=== PATIENT | male | born 1945 | race Caucasian/White ===

== ENCOUNTER → 2016-09-27 | Day surgery (SDC) | payer MEDICARE ==
[~2016-09-27] MED LIST: ALPR0.5T3 PO; AMLO5TAB2 PO; AMOX125C CHEW; ASPI-110 PO; ASPI-130 PO; ASPI81TA11 PO; ASPIRIN EC 81 MG TABEC PO SCH; ATROPINE SULFATE 1 MG/ML VIAL IV PUSH PRN; BUPIVACAINE HCL PF 0.5% 30 ML VIAL ONE; BUPIVACAINE/EPINEPHRINE 0.5% 50 ML VIAL ONE; CARV12.52 PO; CARV6.252 PO; CLOPIDOGREL 300 MG TAB PO ONE; DEXAMETHASONE SOD PHOS 4 MG/ML VIAL ONE; DEXTROSE 5% IV ONE; DO NOT ADM ANY ANTICOAGULANT DRUGS XX PRN; ENALAPRILAT 1.25 MG/ML VIAL IV PRN; FAMOTIDINE 20 MG/2 ML VIAL ONE; FINA5TAB77 PO; GEMF600T PO; HEPARIN SODIUM - IV 10,000 UNITS/10 ML VIAL ONE; HEPARIN SODIUM - SQ 10,000 UNITS/ML VIAL ONE; HOLD GLUCOPHAGE, GLUCOPHAGE XR, AND AVANDAMET XX PRN; INSU1INJ14 SQ; INSULIN HUMAN REGULAR 1,000 UNITS/10 ML VIAL SQ PRN; IOHEXOL 350 MG/ML 100 ML BTL (for RAD DIAG) OTHER ONE; LABETALOL HCL 100 MG/20 ML VIAL IVP PRN; LACTATED RING IV ONE; LACTATED RINGER'S 1000 ML INJ 1,000 ML IV ONE; LACTATED RINGER'S 1000 ML IV SCH; LEVEMIR SQ; LIDOCAINE HCL 1% 50 ML VIAL INFIL PRN; LISI-357 PO; LISI-519 PO; LORazepam 2 MG/ML VIAL IVP PRN; METF500T PO; METOCLOPRAMIDE HCL 10 MG/2 ML VIAL IVS PRN; METOPROLOL TARTRATE 25 MG TAB PO PRN; MIDAZOLAM HCL 2 MG/2 ML VIAL ONE; MORPHINE SULFATE 4 MG/ML INJ IV PUSH PRN; NOVOLOGP2 SQ; ONDANSETRON HCL 4 MG/2 ML VIAL IV PRN; OXYB5TAB10 PO; PARO20TA PO; PARO30TA2 PO; PHENYLEPH/NS 1000 MCG/10 ML SYR IV ONE; PLAV75TA29 PO; POTASSIUM CHLORIDE 20 MEQ CONTROLLED RELEASE TAB PO PRN; PRAV80 PO; PRAV80TA2 PO; PROPOFOL 200 MG/20 ML AMP IV ONE; PROTAMINE SULFATE 50 MG/5 ML VIAL ONE; SODIUM CHLOR 0.9% 250 ML IV PRN; SODIUM CHLORID 0.9% 500 ML IV SCH; SODIUM CHLORIDE 0.9% 1000 ML @ 75 ML/HR IV SCH; SODIUM CHLORIDE 0.9% INJ 100 ML ONE; SODIUM CHLORIDE 5 ML FLUSH BID IVF SCH; SODIUM CHLORIDE 5 ML FLUSH PRN IVF; SODIUM NITROPRUSSIDE 50 MG/250 ML D5W IV SCH; TAMS0.4C4 PO; TAMS0.4C67 PO; VITA100064 PO; XANA0.5T PO; ceFAZolin 1,000 MG/NS 100 ML IV SCH; ceFAZolin INJ 1,000 MG VIAL ONE; cloNIDine HCL 0.1 MG TAB PO PRN; ePHEDrine/NS 25 MG/5 ML SYR IV ONE; oxyCODONE/ACETAMINOPHEN 5 MG/325 MG TAB PO PRN
[2016-09-27 08:18] VITALS: BP 116/69; PULSE 75; RESP 20; TEMP 98.2; O2SAT 98
[2016-09-27 09:05] LABS: AUTOMATED NEUTROPHIL # 8.2 TH/MM3 (1.8-7.7); BASOPHIL % 0.2 % (0.0-2.0); EOSINOPHIL # 0.1 TH/MM3 (0-0.4); EOSINOPHIL % 1.1 % (0.0-4.0); HEMATOCRIT 34.4 % (39.0-51.0); HEMO FLAGS DIFF FINAL; LYMPH % 11.9 % (9.0-44.0); LYMPHOCYTE # 1.2 TH/MM3 (1.0-4.8); MEAN CELL VOLUME 92.1 FL (80.0-100.0); MEAN CORPUSCULAR HEMOGLOBIN 32.2 PG (27.0-34.0); MONO % 5.6 % (0.0-8.0); NEUT % 81.2 % (16.0-70.0); PLATELET COUNT 297 TH/MM3 (150-450); RED BLOOD COUNT 3.73 MIL/MM3 (4.50-5.90); WHITE BLOOD COUNT 10.1 TH/MM3 (4.0-11.0)
[2016-09-27 09:19] LABS: APTT (PATIENT) 28.9 SEC (24.3-30.1); INTERNATIONAL NORMALIZED RATIO 1.1 RATIO
[2016-09-27 09:25] LABS: BICARBONATE 24.5 MEQ/L (21.0-32.0); POTASSIUM 4.2 MEQ/L (3.5-5.1)
--- NOTE | 2016-09-27 15:23 | EKG ---
Date Performed: 09/27/2016 Time Performed: 08:40:57 PTAGE: 71 years EKG: Sinus rhythm LEFT VENTRICULAR HYPERTROPHY AND ST-T CHANGE INFERIOR MYOCARDIAL INFARCTION , OF INDETERMINATE ANTER IOR WALL INFARCT OF INDETERMINATE AGE CANNOT BE EXCLUDED BECAUSE OF THE ABNORMAL R-WAVE TRANSITION. S ANTONETTE THE PRIOR TRACING THERE IS NO SIGNIFICANT SERIAL CHANGE PREVIOUS TRACING : 07/14/2015 07.46 DOCTOR: Charleen Parisi Interpretating Date/Time 09/27/2016 15:21:34
[2016-09-27 18:20] VITALS: BP 151/73; PULSE 94; RESP 18; TEMP 98.2; O2SAT 97
--- NOTE | 2016-09-30 17:39 | MP ---
cc: CCList DATE OF SURGERY: 09/27/2016 PREOPERATIVE DIAGNOSIS: Limb threatening right lower extremity ischemia. POSTOPERATIVE DIAGNOSIS Limb threatening right lower extremity ischemia. OPERATIVE PROCEDURE Right external iliac percutaneous balloon angioplasty in-stent restenosis. Intraoperative aorto femoral arteriograms. SURGEON Stephan Kennedy MD. ANESTHESIA Local MAC DESCRIPTION OF PROCEDURE The patient in the supine position IV sedation was induced, the lower abdomen, both groins and thighs prepped with Betadine and draped in a sterile fashion. Following a protocol time-out, the skin and subcutaneous tissues surrounding the proposed left common femoral access site was preemptively infiltrated with 0.5% Marcaine with epinephrine. Utilizing ultrasound guidance, an 18 gauge needle was inserted into the left mid common femoral lumen and a J-wire advanced under fluoroscopic guidance into the iliac artery. A 5-Micronesian hemostatic sheath was deployed over the J-wire. An advantage guidewire Omni catheter combination was navigated into the sub renal aorta. Flush aortogram utilizing diluted contrast in conjunction with digital C-arm fluoroscopic imaging confirmed occlusion of the right external iliac stent. The iliac artery proximal to and the common femoral artery distal to the stents were widely patent. The advantage guidewire was easily navigated through the occluded stent and into the proximal right SFA. The short 6-Micronesian sheath was exchanged for a 45 cm 6-Micronesian sheath which was guided over the aortic bifurcation into the distal right common iliac artery. The patient was systemically heparinized with 5000 units. The occluded external iliac stent which measured 7 x 30 mm in dimension was initially balloon angioplastied with a 7 x 30 mm balloon inflated to 8 atmospheres. This was followed by inflation of a 7 x 40 mm Lutonix drug coated balloon inflated to 8 atmospheres, 3-minute inflation. Completion angiogram revealed wide patency of the stent with no residual stenosis. Complete angiographic evaluation of both infrainguinal areas was then completed with findings as follows: The right common femoral profunda are widely patent. The right SFA is diffusely diseased with ragged appearing calcified eccentric atherosclerotic throughout producing an area of approximately 60% stenosis at the junction. The mid and distal third SFA. However, no complete occlusion were apparent. The popliteal was also eccentrically calcified and ectatic but patent. Both the right posterior tibial arteries were occluded but the peroneal provided single vessel runoff to the right ankle which then reconstituted the dorsalis pedis across the ankle into the foot. On the left side the common femoral and profunda were widely patent. The in-situ femoral-popliteal bypass vein graft was also widely patent throughout. The popliteal anastomosis was widely patent as well. On the left side, the anterior and posterior tibial arteries were occluded throughout but the peroneal provided single vessel runoff to the left ankle. Heparin was reversed with 15 mg of protamine. The long 6-Micronesian sheath was exchanged for a short 6-Micronesian sheath which was secured with skin suture of 4-0 nylon. Sterile dressing was applied. At the completion of procedure Doppler flow was much more robust within the right foot. The patient returned to the outpatient unit in stable condition having tolerated procedure well. MD WOLFGANG Gramajo/waqas /5:50 PM /5:29 PM
== END | disposition home or self-care (01) ==
LOC: HCVO 07:29
PROVIDERS: ATTEND Surgery Vascular Surgery
DX: I73.9 Peripheral vascular disease, unspecified (principal); I10 Essential (primary) hypertension; E11.9 Type 2 diabetes mellitus without complications; E78.5 Hyperlipidemia, unspecified
CPT/HCPCS: 36247; 36415; 80048; 82948; 85025; 85610; 85730; 86850; 86900; 86901; 93005; J0690; J1100; J1644; J2250; J2370; J2720; J7030; J7120; Q9967; 75710; C1769; C1887; C2623

== ENCOUNTER 2017-02-16 15:39 | Inpatient (IN) | payer MEDICARE ==
[~2017-02-16] VITALS: Ht 170.2 cm; Wt 82.5 kg
[~2017-02-16 15:39] MED LIST changes: -ASPI-110 PO; -ASPI-130 PO; -ASPIRIN EC 81 MG TABEC PO SCH; -ATROPINE SULFATE 1 MG/ML VIAL IV PUSH PRN; -BUPIVACAINE HCL PF 0.5% 30 ML VIAL ONE; -BUPIVACAINE/EPINEPHRINE 0.5% 50 ML VIAL ONE; -CARV12.52 PO; -CLOPIDOGREL 300 MG TAB PO ONE; -DEXAMETHASONE SOD PHOS 4 MG/ML VIAL ONE; -DEXTROSE 5% IV ONE; -DO NOT ADM ANY ANTICOAGULANT DRUGS XX PRN; -ENALAPRILAT 1.25 MG/ML VIAL IV PRN; -FAMOTIDINE 20 MG/2 ML VIAL ONE; -FINA5TAB77 PO; -HEPARIN SODIUM - IV 10,000 UNITS/10 ML VIAL ONE; -HEPARIN SODIUM - SQ 10,000 UNITS/ML VIAL ONE; -HOLD GLUCOPHAGE, GLUCOPHAGE XR, AND AVANDAMET XX PRN; -INSULIN HUMAN REGULAR 1,000 UNITS/10 ML VIAL SQ PRN; -IOHEXOL 350 MG/ML 100 ML BTL (for RAD DIAG) OTHER ONE; -LABETALOL HCL 100 MG/20 ML VIAL IVP PRN; -LACTATED RING IV ONE; -LACTATED RINGER'S 1000 ML INJ 1,000 ML IV ONE; -LACTATED RINGER'S 1000 ML IV SCH; -LEVEMIR SQ; -LIDOCAINE HCL 1% 50 ML VIAL INFIL PRN; -LISI-357 PO; -LORazepam 2 MG/ML VIAL IVP PRN; -METOCLOPRAMIDE HCL 10 MG/2 ML VIAL IVS PRN; -METOPROLOL TARTRATE 25 MG TAB PO PRN; -MIDAZOLAM HCL 2 MG/2 ML VIAL ONE; -MORPHINE SULFATE 4 MG/ML INJ IV PUSH PRN; -ONDANSETRON HCL 4 MG/2 ML VIAL IV PRN; -PARO20TA PO; -PHENYLEPH/NS 1000 MCG/10 ML SYR IV ONE; -POTASSIUM CHLORIDE 20 MEQ CONTROLLED RELEASE TAB PO PRN; -PRAV80 PO; -PROPOFOL 200 MG/20 ML AMP IV ONE; -PROTAMINE SULFATE 50 MG/5 ML VIAL ONE; -SODIUM CHLOR 0.9% 250 ML IV PRN; -SODIUM CHLORID 0.9% 500 ML IV SCH; -SODIUM CHLORIDE 0.9% 1000 ML @ 75 ML/HR IV SCH; -SODIUM CHLORIDE 0.9% INJ 100 ML ONE; -SODIUM CHLORIDE 5 ML FLUSH BID IVF SCH; -SODIUM CHLORIDE 5 ML FLUSH PRN IVF; -SODIUM NITROPRUSSIDE 50 MG/250 ML D5W IV SCH; -TAMS0.4C4 PO; -TAMS0.4C67 PO; -VITA100064 PO; -XANA0.5T PO; -ceFAZolin 1,000 MG/NS 100 ML IV SCH; -ceFAZolin INJ 1,000 MG VIAL ONE; -cloNIDine HCL 0.1 MG TAB PO PRN; -ePHEDrine/NS 25 MG/5 ML SYR IV ONE; -oxyCODONE/ACETAMINOPHEN 5 MG/325 MG TAB PO PRN
[2017-02-16 15:43] VITALS: BP 117/59; PULSE 87; RESP 17; TEMP 98.5; O2SAT 95
--- NOTE | 2017-02-16 16:34 | PD ---
HPI . right great toe infection Chief Complaint: Skin Problem Time Seen by Provider: 16:28 Travel History International Travel<30 days: No Contact w/Intl Traveler<30days: No Traveled to known affect area: No History of Present Illness HPI 71-year-old male with multiple medical problems including diabetes, hypertension , hyperlipidemia, CAD, history of CABG, PAD, femoral bypass in the past, history of nephrolithiasis here with complaints of right great toe infection. Patient tells me that he has had infection of his right great toe since August of this year. He has been following up with podiatry and was recommended come to the emergency department on Monday of this week. Patient tells me that he did not want to come and has been trying to take care of this at home. He did have an appointment with podiatry today and was sent straight to the emergency room. Plsql Developer felt patient may have osteomyelitis and was sent here for further evaluation. Patient reports right great toe infection and pain rated as 6/10 without any further radiation. He admits to drainage from the wound, but denies any fever or chills. He has had previous amputations and all of the digits of his left foot are removed. He is accompanied by his significant other. His PCP is Dr. Joaquin Dalton. [facility] Past Medical History Hx Anticoagulant Therapy: Yes (PLAVIX AND ASPRIN 81 MG) Cancer: No Cardiovascular Problems: Yes (TRIPLE BYPASS 2014; HTN; PAD) High Cholesterol: Yes Coronary Artery Disease: Yes Diabetes: Yes (TYPE 2; METFORMIN AND INSULIN) Diminished Hearing: No Endocrine: Yes Genitourinary: Yes (HX OF KIDNEY STONES, UTI'S, THICKENING OF BLADDER WALL- NEEDS BX) Hepatitis: No Hiatal Hernia: No Hypertension: Yes Immune Disorder: No Musculoskeletal: Yes (DIFFICULTY WALKING DISTANCE--PVD; TRIGGER FINGER, LEFT HAND,BACK ) Neurologic: Yes (PAIN AFTER WALKING A FEW YARDS IN LEGS) Psychiatric: Yes (ANXIETY & DEPRESSION) Reproductive: No Respiratory: Yes (HX HX SMOKES CIGARS , FORMERLY 2 PPD CIGARETTE SMOKER) Myocardial Infarction: Yes Thyroid Disease: No ?: Not Past Surgical History AICD: No Body Medical Devices: 2 DENTAL IMPLANTS, STENT LEFT LEG Cardiac Surgery: Yes (EMPHYEMA; CABG) Genitourinary Surgery: Yes (LITHOTRIPSY X 3, LITHOTRIPSY 2012,STONES EXTRACTED L KIDNEY 2012) Joint Replacement: No Oral Surgery: Yes (MULTIPLE TEETH EXTRACTED; 2 DENTAL IMPLANTS) Pacemaker: No Thoracic Surgery: Yes (EMPYEMA REMOVED WITH DRAINAGE TUBE ) Social History Alcohol Use: No Tobacco Use: Yes (CIGAR DAILY) Substance Use: Yes (MEDICAL MARIJUANA) Allergies-Medications (Allergen,Severity, Reaction): Coded Allergies: Codeine (Verified Adverse Reaction, Severe, "NAUSEA", 02/16/17) Wellbutrin (Verified Adverse Reaction, Intermediate, ANXIETY, 02/16/17) AGITATED, PARANOIA Reported Meds & Prescriptions Reported Meds & Active Scripts Active Reported Vitamin D (Cholecalciferol) 1,000 Unit Tab 50,000 Units PO WEEKLY Plavix (Clopidogrel Bisulfate) 75 Mg Tab 75 Mg PO DAILY Novolog Inj (Insulin Aspart) 1,000 Unit/10 Ml Vial 0 SQ DIRECTED Sliding Scale as directed. Tresiba Flextouch Pen Inj (Insulin Degludec Inj) 300 unit/3 ML Pen 70 Units SQ HS Paroxetine (Paroxetine HCl) 30 Mg Tab 30 Mg PO DAILY Aspirin EC (Aspirin) 81 Mg Tabdr 81 Mg PO DAILY Ditropan (Oxybutynin Chloride) 5 Mg Tab 5 Mg PO TID Metformin (Metformin HCl) 500 Mg Tab 500 Mg PO BIDPC With meals Lisinopril 5 Mg Tab 5 Mg PO DAILY Gemfibrozil 600 Mg Tab 600 Mg PO BIDAC Take 30 minutes prior to breakfast and dinner. Carvedilol 6.25 Mg Tab 6.25 Mg PO BID Amlodipine (Amlodipine Besylate) 5 Mg Tab 5 Mg PO DAILY Alprazolam 0.5 Mg Tab 0.5 Mg PO BID PRN Pravastatin 80 Mg Tab 80 Mg PO HS Review of Systems General / Constitutional: No: Fever Eyes: No: Visual changes HENT: No: Headaches Cardiovascular: No: Chest Pain or Discomfort Respiratory: No: Shortness of Breath Gastrointestinal: No: Abdominal Pain Genitourinary: No: Dysuria Musculoskeletal: No: Pain Skin: Positive Other (right great toe infection ), No Rash Neurologic: No: Weakness Psychiatric: No: Depression Endocrine: No: Polydipsia Hematologic/Lymphatic: No: Easy Bruising Physical Exam Narrative GENERAL: AAO x 3, no acute distress, Well-nourished, well-developed patient. SKIN: Warm and dry. No visible rashes or bruising. right great toe erythematous , slight purulent drainage present, + edema HEAD: Normocephalic and atraumatic. EYES: No scleral icterus. No injection or drainage. EOM intact, PERRLA ENT: No nasal drainage noted. Mucous membranes pink. Airway patent. NECK: Supple, trachea midline. No JVD. no lymphadenopathy CARDIOVASCULAR: Regular rate and rhythm without murmurs, gallops, or rubs. RESPIRATORY: Breath sounds equal bilaterally. No accessory muscle use. No rhonchi or rales. GASTROINTESTINAL: Abdomen soft, non-tender, nondistended. EXTREMITIES: No cyanosis, trace to +1 edema of right ankle/foot, pedal pulse not palpable, posterior tibial pulse diminished b/l, all toes amputated from left foot BACK: Nontender without obvious deformity. NEURO: CN II-12 intact, repair order clerk strength normal b/l, UE and LE 5/5, sensation in right great toe abnormal PSYCH: AAO x 3, normal affect. Data Data Last Documented VS Vital Signs Date Time Temp Pulse Resp B/P Pulse Ox O2 Delivery O2 Flow Rate FiO2 02/16/17 17:59 77 20 151/70 96 Room Air 02/16/17 15:43 98.5 Orders Foot, Complete ([id number]) (02/16/17 16:34) Complete Blood Count With Diff (02/16/17 16:34) Comprehensive Metabolic Panel (02/16/17 16:34) Prothrombin Time / Inr (Pt) (02/16/17 16:34) Act Partial Throm Time (Ptt) (02/16/17 16:34) Lactic Acid Sepsis Protocol (02/16/17 16:34) Urinalysis - C+S If Indicated (02/16/17 16:34) Blood Culture (02/16/17 16:34) Wound Culture And Gram Stain (02/16/17 16:34) Chest, Single Ap (02/16/17 16:34) Blood Glucose (02/16/17 16:34) Ecg Monitoring (02/16/17 16:34) Iv Access Insert/Monitor (02/16/17 16:34) Oximetry (02/16/17 16:34) Oxygen Administration (02/16/17 16:34) Urine Culture (02/16/17 17:00) Piperacil-Tazo 3.375 Gm Premix (Zosyn 3. (02/16/17 18:00) Vancomycin Inj (Vancomycin Inj) (02/16/17 18:00) Consult Podiatry (02/16/17 ) Wbc Ceretec, Wb W/ Spect (02/16/17 ) Diet Diabetic (02/16/17 Dinner) Admit Order (Ed Use Only) (02/16/17 18:12) Labs Laboratory Tests Test 02/16/17 02/16/17 02/16/17 16:45 16:50 17:00 White Blood Count 7.8 TH/MM3 Red Blood Count 3.45 MIL/MM3 Hemoglobin 10.8 GM/DL Hematocrit 31.4 % Mean Corpuscular Volume 90.9 FL Mean Corpuscular Hemoglobin 31.2 PG Mean Corpuscular Hemoglobin 34.3 % Concent Red Cell Distribution Width 13.0 % Platelet Count 380 TH/MM3 Mean Platelet Volume 7.0 FL Neutrophils (%) (Auto) 73.0 % Lymphocytes (%) (Auto) 15.9 % Monocytes (%) (Auto) 8.7 % Eosinophils (%) (Auto) 2.2 % Basophils (%) (Auto) 0.2 % Neutrophils # (Auto) 5.7 TH/MM3 Lymphocytes # (Auto) 1.2 TH/MM3 Monocytes # (Auto) 0.7 TH/MM3 Eosinophils # (Auto) 0.2 TH/MM3 Basophils # (Auto) 0.0 TH/MM3 CBC Comment DIFF FINAL Differential Comment Prothrombin Time 11.3 SEC Prothromb Time International 1.0 RATIO Ratio Activated Partial 31.9 SEC Thromboplast Time Sodium Level 140 MEQ/L Potassium Level 4.3 MEQ/L Chloride Level 107 MEQ/L Carbon Dioxide Level 24.1 MEQ/L Anion Gap 9 MEQ/L Blood Urea Nitrogen 31 MG/DL Creatinine 1.13 MG/DL Estimat Glomerular Filtration 64 ML/MIN Rate Random Glucose 93 MG/DL Calcium Level 9.2 MG/DL Total Bilirubin 0.3 MG/DL Aspartate Amino Transf 14 U/L (AST/SGOT) Alanine Aminotransferase 14 U/L (ALT/SGPT) Alkaline Phosphatase 101 U/L Total Protein 8.0 GM/DL Albumin 3.5 GM/DL Lactic Acid Level 1.1 mmol/L Urine Color YELLOW Urine Turbidity HAZY Urine pH 6.0 Urine Specific [place] 1.017 Urine Protein 30 mg/dL Urine Glucose (UA) NEG mg/dL Urine Ketones NEG mg/dL Urine Occult Blood SMALL Urine Nitrite NEG Urine Bilirubin NEG Urine Urobilinogen 2.0 MG/DL Urine Leukocyte Esterase LARGE Urine RBC 8 /hpf Urine WBC /hpf Urine Squamous Epithelial <1 /hpf Cells Urine Transitional Epithelial 2 /hpf Cells Urine Mucus FEW /lpf Microscopic Urinalysis Comment CATH-CULTURE IND MDM Medical Decision Making Medical Screen Exam Complete: Yes Emergency Medical Condition: Yes Medical Record Reviewed: Yes Differential Diagnosis Right great toe infection, acute on chronic wounds, osteomyelitis, less likely fracture, less likely sepsis Narrative Course 71-year-old male with multiple medical problems here with right great toe infection. Patient has been recommended by his orthotist or prosthetist for evaluation for possible osteomyelitis and admission. IV access was obtained, labs and x-ray have been ordered. Last Impressions Foot X-Ray 02/16/[id number] Signed Impressions: Service Date/Time: , February 16, 2017 16:43 - CONCLUSION: 1. Cortical disruption involving the distal phalanx the first digit concerning for osteomyelitis. Narendra Lopez MD Chest X-Ray 02/16/171633 Signed Impressions: Service Date/Time: , February 16, 2017 16:45 - CONCLUSION: 1. No focal consolidation. Blunting of the right costophrenic angle may represent a small effusion or scarring. Previous median sternotomy. Arnie Veliz MD Laboratory Tests Test 02/16/17 02/16/17 02/16/17 16:45 16:50 17:00 White Blood Count 7.8 TH/MM3 Red Blood Count 3.45 MIL/MM3 Hemoglobin 10.8 GM/DL Hematocrit 31.4 % Mean Corpuscular Volume 90.9 FL Mean Corpuscular Hemoglobin 31.2 PG Mean Corpuscular Hemoglobin 34.3 % Concent Red Cell Distribution Width 13.0 % Platelet Count 380 TH/MM3 Mean Platelet Volume 7.0 FL Neutrophils (%) (Auto) 73.0 % Lymphocytes (%) (Auto) 15.9 % Monocytes (%) (Auto) 8.7 % Eosinophils (%) (Auto) 2.2 % Basophils (%) (Auto) 0.2 % Neutrophils # (Auto) 5.7 TH/MM3 Lymphocytes # (Auto) 1.2 TH/MM3 Monocytes # (Auto) 0.7 TH/MM3 Eosinophils # (Auto) 0.2 TH/MM3 Basophils # (Auto) 0.0 TH/MM3 CBC Comment DIFF FINAL Differential Comment Prothrombin Time 11.3 SEC Prothromb Time International 1.0 RATIO Ratio Activated Partial 31.9 SEC Thromboplast Time Sodium Level 140 MEQ/L Potassium Level 4.3 MEQ/L Chloride Level 107 MEQ/L Carbon Dioxide Level 24.1 MEQ/L Anion Gap 9 MEQ/L Blood Urea Nitrogen 31 MG/DL Creatinine 1.13 MG/DL Estimat Glomerular Filtration 64 ML/MIN Rate Random Glucose 93 MG/DL Calcium Level 9.2 MG/DL Total Bilirubin 0.3 MG/DL Aspartate Amino Transf 14 U/L (AST/SGOT) Alanine Aminotransferase 14 U/L (ALT/SGPT) Alkaline Phosphatase 101 U/L Total Protein 8.0 GM/DL Albumin 3.5 GM/DL Lactic Acid Level 1.1 mmol/L Urine Color YELLOW Urine Turbidity HAZY Urine pH 6.0 Urine Specific [place] 1.017 Urine Protein 30 mg/dL Urine Glucose (UA) NEG mg/dL Urine Ketones NEG mg/dL Urine Occult Blood SMALL Urine Nitrite NEG Urine Bilirubin NEG Urine Urobilinogen 2.0 MG/DL Urine Leukocyte Esterase LARGE Urine RBC 8 /hpf Urine WBC /hpf Urine Squamous Epithelial <1 /hpf Cells Urine Transitional Epithelial 2 /hpf Cells Urine Mucus FEW /lpf Microscopic Urinalysis Comment CATH-CULTURE IND results reviewed: foot xray concerning for osteomyelitis/ UA also +, recommend admission and will consult podiatry. Patient given a dose of vancomycin and Zosyn here in the emergency department. Diabetic diet ordered here in ed. WBC ceretect ordered per podiatry request. 1758: call back requested for admission 1810: Spoke with Dr. Asencio who recommends admission to Dr. Rios. NPO after midnight. I discussed admission with patient and his . They were in agreement with the treatment plan. Patient and his both thank me their care. Diagnosis Primary Impression: Toe infection Additional Impression: UTI (urinary tract infection) Qualified Code: N30.01 - Acute cystitis with hematuria Admitting Information Admitting Physician Requests: Admit Condition: Stable Mariann Isaac Feb 16, 2017 16:34
[2017-02-16] MEDS ORDERED: VITA100064 PO (16:38)
--- NOTE | 2017-02-16 17:04 | RADRPT ---
EXAM DATE/TIME: 02/16/2017 16:45 [facility] COMPARISON: No previous studies available for comparison. INDICATIONS : Cough MEDICAL HISTORY : Hypertension. Diabetes mellitus type II. SURGICAL HISTORY : CABG. Amputation left toes ENCOUNTER: Initial ACUITY: 1 day PAIN SCORE: 0/10 LOCATION: Bilateral chest FINDINGS: A single view of the chest demonstrates postoperative median sternotomy. Mild blunting at the right c ostophrenic angle which may represent scarring or small effusion. No pneumothorax. Previous median st ernotomy. CONCLUSION: 1. No focal consolidation. Blunting of the right costophrenic angle may represent a small effusion or scarring. Previous median sternotomy. Arnie Veliz MD on February 16, 2017 at 17:00 Board Certified Radiologist. This report was verified electronically.
--- NOTE | 2017-02-16 17:08 | RADRPT ---
EXAM DATE/TIME: 02/16/2017 16:43 [facility] COMPARISON: FLUOROSCOPY PORTABLE UP TO 1HR, October 06, 2015, 0:00. INDICATIONS : Right distal foot and 1st and 2nd toe pain, swelling and redness Osteomyelitis MEDICAL HISTORY : Hypertension. Diabetes mellitus type II. SURGICAL HISTORY : CABG. Amputations left toes ENCOUNTER: Initial ACUITY: 4 - 6 days PAIN SCORE: 9/10 LOCATION: Right Foot FINDINGS: The examination demonstrates cortical disruption and rarefaction of bone involving distal most portio n of the distal phalanx of the first digit. This is concerning for osteomyelitis. No definite cortical destruction is seen involving the second digit. There is diffuse soft tissue swe lling involving both kidneys. CONCLUSION: 1. Cortical disruption involving the distal phalanx the first digit concerning for osteomyelitis. Narendra Lopez MD on February 16, 2017 at 16:59 Board Certified Radiologist. This report was verified electronically.
[2017-02-16 17:11] VITALS: O2SAT 96
[2017-02-16 17:20] LABS: AUTOMATED NEUTROPHIL # 5.7 TH/MM3 (1.8-7.7); BASOPHIL % 0.2 % (0.0-2.0); EOSINOPHIL # 0.2 TH/MM3 (0-0.4); EOSINOPHIL % 2.2 % (0.0-4.0); HEMATOCRIT 31.4 % (39.0-51.0); HEMO FLAGS DIFF FINAL; LYMPH % 15.9 % (9.0-44.0); LYMPHOCYTE # 1.2 TH/MM3 (1.0-4.8); MEAN CELL VOLUME 90.9 FL (80.0-100.0); MEAN CORPUSCULAR HEMOGLOBIN 31.2 PG (27.0-34.0); MEAN CORPUSCULAR HGB CONC 34.3 % (32.0-36.0); MONO % 8.7 % (0.0-8.0); PLATELET COUNT 380 TH/MM3 (150-450); RED BLOOD COUNT 3.45 MIL/MM3 (4.50-5.90); WHITE BLOOD COUNT 7.8 TH/MM3 (4.0-11.0)
[2017-02-16 17:24] LABS: APTT (PATIENT) 31.9 SEC (24.3-30.1); PROTHROMBIN TIME - PATIENT 11.3 SEC (9.8-11.6)
[2017-02-16 17:28] LABS: BLOOD, URINE SMALL (NEG); GLUCOSE,URINE NEG (NEG); KETONE, URINE NEG (NEG); MUCUS URINE FEW /lpf (OCC); NITRITE,URINE NEG (NEG); SQUAMOUS EPITHELIAL CELL URINE <1 /hpf (0-5); TRANSITIONAL EPI CELLS, URINE 2 /hpf; URINE COLOR YELLOW (YELLW/STRAW)
[2017-02-16 17:30] LABS: COMMENT (UR) CATH-CULTURE IND; CULTURE IF INDICATED CATH CULTURE IND
[2017-02-16 17:33] LABS: ALT (GPT) 14 U/L (12-78); ANION GAP 9 MEQ/L (5-15); AST (GOT) 14 U/L (15-37); BICARBONATE 24.1 MEQ/L (21.0-32.0); BLOOD UREA NITROGEN 31 MG/DL (7-18); CHLORIDE 107 MEQ/L (98-107); GLOMERULAR FILTRATION RATE 64 ML/MIN (>89); POTASSIUM 4.3 MEQ/L (3.5-5.1); SODIUM (NA) 140 MEQ/L (136-145)
[2017-02-16 17:35] LABS: ALKALINE PHOSPHATASE 101 U/L (45-117); TOTAL BILIRUBIN ADULT 0.3 MG/DL (0.2-1.0)
[2017-02-16 17:59] VITALS: BP 151/70; PULSE 77; RESP 20; O2SAT 96
[2017-02-16] MEDS ORDERED: VANCOMYCIN INJ 1,000 MG in SODIUM CHLOR 0.9% 250 ML INJ 250 ML IV ONE (18:00)
[2017-02-16] MEDS ORDERED: PIPERACIL-TAZO 3.375 GM PREMIX 50 ML IV ONE (18:00)
[2017-02-16] MEDS ORDERED: SENNOSIDES 8.6 MG TAB PO PRN (18:15)
[2017-02-16] MEDS ORDERED: SODIUM CHLORIDE 0.9% FLUSH 10 ML FLUSH IV FLUSH PRN (18:15)
[2017-02-16] MEDS ORDERED: BISACODYL 10 MG SUPP RECTAL PRN (18:15)
[2017-02-16] MEDS ORDERED: HYDROmorphone HCL PF 1 MG/ML VIAL IV PRN (18:15)
[2017-02-16] MEDS ORDERED: MAGNESIUM HYDROXIDE SUSP 30 ML CUP PO PRN (18:15)
[2017-02-16] MEDS ORDERED: ENOXAPARIN SODIUM 30 MG/0.3 ML SYRINGE SQ SCH (18:15)
[2017-02-16] MEDS ORDERED: LACTULOSE SYRUP 20 GM/30 ML CUP PO PRN (18:15)
[2017-02-16] MEDS ORDERED: ONDANSETRON HCL 4 MG/2 ML VIAL IVP PRN (18:15)
[2017-02-16] MEDS ORDERED: NALOXONE HCL 0.4 MG/ML AMP IV PRN (18:15)
[2017-02-16] MEDS ORDERED: Vancomycin Consult Pharmacy 1 EA OTHER SCH (18:30)
--- NOTE | 2017-02-16 18:31 | HHI.HP ---
HPI Service [facility] Hospitalists Primary Care Physician Linda Valle MD Admission Diagnosis right great toe infection Chief Complaint: sent by podiatry for infection rt great toe Travel History International Travel<30 Days: No Contact w/Intl Traveler <30 Da: No Traveled to Known Affected Are: No History of Present Illness 71-year-old male with multiple medical problems including diabetes, hypertension , hyperlipidemia, CAD, history of CABG, PAD, femoral bypass in the past, history of nephrolithiasis here with complaints of right great toe infection. Patient states that he has had infection of his right great toe since August of this year. He has been following up with podiatry and was recommended come to the emergency department on Monday of this week. Patient tells me that he did not want to come and has been trying to take care of this at home. He did have an appointment with podiatry today and was sent straight to the emergency room. Towel Rolling Machine Operator felt patient may have osteomyelitis and was sent for further evaluation. Patient reports right great toe infection and pain rated as 6/10 without any further radiation. He admits to drainage from the wound, but denies any fever or chills. He has had previous amputations and all of the digits of his left foot are removed. Xrays suggest probable osteomyelitis rt great toe and will be started on antibiotics and consult to podiatry may need surgery. Review of Systems Musculoskeletal: COMPLAINS OF: Joint pain Past Family Social History Past Medical History triple bypass 2015,htn,pad,hyperlipidemia,cad,dm on insulin,uti kidney stone, thick bladder wall anxiety Past Surgical History cabg,lithotripsy empyema lung Reported Medications Vitamin D (Cholecalciferol) 1,000 Unit Tab 50,000 Units PO WEEKLY Plavix (Clopidogrel Bisulfate) 75 Mg Tab 75 Mg PO DAILY Novolog Inj (Insulin Aspart) 1,000 Unit/10 Ml Vial 0 SQ DIRECTED Sliding Scale as directed. Tresiba Flextouch Pen Inj (Insulin Degludec Inj) 300 unit/3 ML Pen 70 Units SQ HS Paroxetine (Paroxetine HCl) 30 Mg Tab 30 Mg PO DAILY Aspirin EC (Aspirin) 81 Mg Tabdr 81 Mg PO DAILY Ditropan (Oxybutynin Chloride) 5 Mg Tab 5 Mg PO TID Metformin (Metformin HCl) 500 Mg Tab 500 Mg PO BIDPC With meals Lisinopril 5 Mg Tab 5 Mg PO DAILY Gemfibrozil 600 Mg Tab 600 Mg PO BIDAC Take 30 minutes prior to breakfast and dinner. Carvedilol 6.25 Mg Tab 6.25 Mg PO BID Amlodipine (Amlodipine Besylate) 5 Mg Tab 5 Mg PO DAILY Alprazolam 0.5 Mg Tab 0.5 Mg PO BID PRN Pravastatin 80 Mg Tab 80 Mg PO HS Allergies: Coded Allergies: Codeine (Verified Adverse Reaction, Severe, "NAUSEA", 02/16/17) Wellbutrin (Verified Adverse Reaction, Intermediate, ANXIETY, 02/16/17) AGITATED, PARANOIA Social History former smoker 2ppd now occ cigars medical marijuana Physical Exam Vital Signs Vital Signs Date Time Temp Pulse Resp B/P Pulse Ox O2 Delivery O2 Flow Rate FiO2 02/16/17 17:59 77 20 151/70 96 Room Air 02/16/17 17:11 96 02/16/17 16:31 90 20 02/16/17 15:43 98.5 87 17 117/59 95 Physical Exam GENERAL: This is a well-nourished, well-developed patient, in no apparent distress. SKIN: No rashes, ecchymoses or lesions. Cool and dry. HEAD: Atraumatic. Normocephalic. No temporal or scalp tenderness. EYES: Pupils equal round and reactive. Extraocular motions intact. No scleral icterus. No injection or drainage. ENT: Nose without bleeding, purulent drainage or septal hematoma. Throat without erythema, tonsillar hypertrophy or exudate. Uvula midline. Airway patent. NECK: Trachea midline. No JVD or lymphadenopathy. Supple, nontender, no meningeal signs. CARDIOVASCULAR: Regular rate and rhythm without murmurs, gallops, or rubs. RESPIRATORY: Clear to auscultation. Breath sounds equal bilaterally. No wheezes , rales, or rhonchi. GASTROINTESTINAL: Abdomen soft, non-tender, nondistended. No hepato-splenomegaly , or palpable masses. No guarding. MUSCULOSKELETAL: Extremities left foot all toes amputation rt toe swollen , tender ,red, drainage. NEUROLOGICAL: Awake and alert. Cranial nerves II through XII intact. Motor and sensory grossly within normal limits. Five out of 5 muscle strength in all muscle groups. Normal speech. Laboratory Laboratory Tests Test 02/16/17 02/16/17 02/16/17 16:45 16:50 17:00 White Blood Count 7.8 Red Blood Count 3.45 Hemoglobin 10.8 Hematocrit 31.4 Mean Corpuscular Volume 90.9 Mean Corpuscular Hemoglobin 31.2 Mean Corpuscular Hemoglobin 34.3 Concent Red Cell Distribution Width 13.0 Platelet Count 380 Mean Platelet Volume 7.0 Neutrophils (%) (Auto) 73.0 Lymphocytes (%) (Auto) 15.9 Monocytes (%) (Auto) 8.7 Eosinophils (%) (Auto) 2.2 Basophils (%) (Auto) 0.2 Neutrophils # (Auto) 5.7 Lymphocytes # (Auto) 1.2 Monocytes # (Auto) 0.7 Eosinophils # (Auto) 0.2 Basophils # (Auto) 0.0 CBC Comment DIFF FINAL Differential Comment Prothrombin Time 11.3 Prothromb Time International 1.0 Ratio Activated Partial 31.9 Thromboplast Time Sodium Level 140 Potassium Level 4.3 Chloride Level 107 Carbon Dioxide Level 24.1 Anion Gap 9 Blood Urea Nitrogen 31 Creatinine 1.13 Estimat Glomerular Filtration 64 Rate Random Glucose 93 Calcium Level 9.2 Total Bilirubin 0.3 Aspartate Amino Transf 14 (AST/SGOT) Alanine Aminotransferase 14 (ALT/SGPT) Alkaline Phosphatase 101 Total Protein 8.0 Albumin 3.5 Lactic Acid Level 1.1 Urine Color YELLOW Urine Turbidity HAZY Urine pH 6.0 Urine Specific [place] 1.017 Urine Protein 30 Urine Glucose (UA) NEG Urine Ketones NEG Urine Occult Blood SMALL Urine Nitrite NEG Urine Bilirubin NEG Urine Urobilinogen 2.0 Urine Leukocyte Esterase LARGE Urine RBC 8 Urine WBC Urine Squamous Epithelial <1 Cells Urine Transitional Epithelial 2 Cells Urine Mucus FEW Microscopic Urinalysis Comment CATH-CULTURE IND Date/Time Procedure Status Source Growth 02/16/17 17:00 Urine Culture Received Urine Catheterized Urine Pending 02/16/17 17:00 Aerobic Blood Culture Received Blood Peripheral Pending 02/16/17 17:00 Anaerobic Blood Culture Received Blood Peripheral Pending 02/16/17 16:45 Gram Stain - Final Resulted Wound Toe 02/16/17 16:45 Wound Culture Resulted Wound Toe Pending Result Diagram: 02/16/17 1645 02/16/17 1645 Imaging Last 24 hours Impressions Foot X-Ray 02/16/17 1634 Signed Impressions: Service Date/Time: January 16:43 - CONCLUSION: 1. Cortical disruption involving the distal phalanx the first digit concerning for osteomyelitis. Narendra Lopez MD Chest X-Ray 02/16/17 1634 Signed Impressions: Service Date/Time: , February 16, 2017 16:45 - CONCLUSION: 1. No focal consolidation. Blunting of the right costophrenic angle may represent a small effusion or scarring. Previous median sternotomy. Arnie Veliz MD Course in er started on antibiotics Assessment and Plan Problem List: (1) Toe infection Status: Acute Plan: probably over week start on zosyn and vancomycin IV consult podiatry (2) Osteomyelitis Status: Acute Plan: xray suggests antibiotics as above (3) UTI (urinary tract infection) Status: Acute Plan: antibiotics as urine suggests uti Assessment and Plan further plan as case develops continue home meds Code Status full Discussed Condition With patient Physician Certification 2 Midnight Certification Type: Admission for Inpatient Services Order for Inpatient Services The services are ordered in accordance with Medicare regulations or non- Medicare payer requirements, as applicable. In the case of services not specified as inpatient-only, they are appropriately provided as inpatient services in accordance with the 2-midnight benchmark. Estimated LOS (days): 3 3 days is the estimated time the patient will need to remain in the hospital, assuming treatment plan goals are met and no additional complications. Post-Hospital Plan: Not yet determined Problem Qualifiers (1) UTI (urinary tract infection): Qualified Code: N30.01 - Acute cystitis with hematuria Fer Asencio MD Feb 16, 2017 18:31
[2017-02-16] MEDS ORDERED: PILL SPLITTER OTHER PRN (19:15)
[2017-02-16 20:00] VITALS: BP 147/69; PULSE 81; RESP 18; O2SAT 99
[2017-02-16] MEDS: INSULIN ASPART SUPPLEMENTAL SCALE SQ SCH (21:00)
[2017-02-16] MEDS ORDERED: [UNRECOGNIZED DRUG - OTHER] SQ SCH (21:00)
[2017-02-16] MEDS ORDERED: INSULIN DEGLUDEC 70 UNIT SQ SCH (21:00)
[2017-02-16 22:00] VITALS: BP 164/70; PULSE 78; RESP 17; TEMP 97.5; O2SAT 98
[2017-02-16] MEDS: CARVEDILOL 6.25 MG TAB PO SCH (23:33)
[2017-02-16] MEDS: ALPRAZolam 0.5 MG TAB PO PRN (23:33)
[2017-02-16] MEDS: DOCUSATE SODIUM 50 MG/SENNA 8.6 MG TAB PO SCH (23:33)
[2017-02-16] MEDS: PRAVASTATIN SOD 80 MG TAB PO SCH (23:34)
[2017-02-16] MEDS: SODIUM CHLORIDE 0.9% FLUSH 10 ML FLUSH IV FLUSH SCH (23:34)
[2017-02-17 00:30] VITALS: BP 158/65; PULSE 76; RESP 18; TEMP 98.5; O2SAT 97
[2017-02-17] MEDS: PIPERACIL-TAZO 3.375 GM PREMIX 50 ML IV SCH ×3 (01:48→16:51)
[2017-02-17 04:45] VITALS: BP 150/62; PULSE 80; RESP 21; TEMP 97.9; O2SAT 98
[2017-02-17] MEDS: VANCOMYCIN INJ 1,500 MG in SODIUM CHLORID 0.9% 500 ML INJ 500 ML IV SCH ×2 (06:14→23:30)
[2017-02-17] MEDS: INSULIN ASPART SUPPLEMENTAL SCALE SQ SCH ×4 (06:24→21:00)
[2017-02-17] MEDS: GEMFIBROZIL 600 MG TAB PO SCH ×2 (06:46→16:00)
[2017-02-17 08:00] VITALS: BP 128/60; PULSE 78; RESP 20; TEMP 98.5; O2SAT 95
[2017-02-17] MEDS: SODIUM CHLORIDE 0.9% FLUSH 10 ML FLUSH IV FLUSH SCH ×2 (08:01→21:27)
[2017-02-17] MEDS: CARVEDILOL 6.25 MG TAB PO SCH ×2 (08:01→21:27)
[2017-02-17] MEDS: CLOPIDOGREL 75 MG TAB PO SCH (08:01)
[2017-02-17] MEDS: ASPIRIN EC 81 MG TABEC PO SCH (08:01)
[2017-02-17] MEDS: OXYBUTYNIN CHLORIDE 5 MG TAB PO SCH ×3 (08:01→16:51)
[2017-02-17] MEDS: amLODIPine BESYLATE 5 MG TAB PO SCH (08:01)
[2017-02-17] MEDS: LISINOPRIL 5 MG TAB PO SCH (08:01)
[2017-02-17] MEDS: PARoxetine HCL 20 MG TAB PO SCH (08:01)
[2017-02-17] MEDS: DOCUSATE SODIUM 50 MG/SENNA 8.6 MG TAB PO SCH ×2 (08:02→21:00)
[2017-02-17] MEDS: metFORMIN HCL 500 MG TAB PO SCH ×2 (08:02→16:49)
[2017-02-17] MEDS ORDERED: NON-FORMULARY DRUG (Paroxetine 30 MG) PO SCH (09:00)
[2017-02-17 09:33] LABS: AUTOMATED NEUTROPHIL # 4.7 TH/MM3 (1.8-7.7); BASOPHIL % 0.3 % (0.0-2.0); EOSINOPHIL # 0.2 TH/MM3 (0-0.4); EOSINOPHIL % 2.4 % (0.0-4.0); HEMATOCRIT 30.3 % (39.0-51.0); HEMO FLAGS DIFF FINAL; LYMPH % 19.9 % (9.0-44.0); LYMPHOCYTE # 1.4 TH/MM3 (1.0-4.8); MEAN CELL VOLUME 92.4 FL (80.0-100.0); MEAN CORPUSCULAR HEMOGLOBIN 31.9 PG (27.0-34.0); MEAN CORPUSCULAR HGB CONC 34.5 % (32.0-36.0); MONO % 9.9 % (0.0-8.0); NEUT % 67.5 % (16.0-70.0); PLATELET COUNT 365 TH/MM3 (150-450); RED BLOOD COUNT 3.28 MIL/MM3 (4.50-5.90)
[2017-02-17 11:17] LABS: BLOOD UREA NITROGEN 23 MG/DL (7-18); GLOMERULAR FILTRATION RATE 72 ML/MIN (>89)
[2017-02-17 11:18] LABS: ALKALINE PHOSPHATASE 93 U/L (45-117); ALT (GPT) 15 U/L (12-78); ANION GAP 12 MEQ/L (5-15); AST (GOT) 20 U/L (15-37); CHLORIDE 108 MEQ/L (98-107); SODIUM (NA) 143 MEQ/L (136-145); TOTAL BILIRUBIN ADULT 0.4 MG/DL (0.2-1.0)
[2017-02-17 12:00] VITALS: BP 123/57; PULSE 74; RESP 20; TEMP 97.5; O2SAT 97
--- NOTE | 2017-02-17 14:00 | HHI.PR ---
Subjective Remarks Pt without any specific complaints Pt getting BRADLEY performed at the time of examination Pt reports that his pain is controlled Objective Vitals Vital Signs Date Time Temp Pulse Resp B/P Pulse Ox O2 Delivery O2 Flow Rate FiO2 02/17/17 12:00 97.5 74 20 123/57 97 02/17/17 08:00 98.5 78 20 128/60 95 02/17/17 04:45 97.9 80 21 150/62 98 02/17/17 00:30 98.5 76 18 158/65 97 02/16/17 22:00 97.5 78 17 164/70 98 02/16/17 20:00 81 18 147/69 99 Nasal Cannula 2 02/16/17 17:59 77 20 151/70 96 Room Air 02/16/17 17:11 96 02/16/17 16:31 90 20 02/16/17 15:43 98.5 87 17 117/59 95 02/16/17 02/16/17 02/17/17 15:00 23:00 07:00 Intake Total 0 ml 350 ml Output Total 100 ml Balance 0 ml 250 ml Intake Oral 0 ml 300 ml IV Total 50 ml Output Urine Total 100 ml # Voids 1 3 # Bowel Movements 0 0 Result Diagram: 02/17/17 0751 02/17/17 0751 Other Results Laboratory Tests Test 02/16/17 02/16/17 02/16/17 02/17/17 16:45 16:50 17:00 07:51 White Blood Count 7.8 TH/MM3 7.0 TH/MM3 Red Blood Count 3.45 MIL/MM3 3.28 MIL/MM3 Hemoglobin 10.8 GM/DL 10.5 GM/DL Hematocrit 31.4 % 30.3 % Mean Corpuscular Volume 90.9 FL 92.4 FL Mean Corpuscular Hemoglobin 31.2 PG 31.9 PG Mean Corpuscular Hemoglobin 34.3 % 34.5 % Concent Red Cell Distribution Width 13.0 % 13.0 % Platelet Count 380 TH/MM3 365 TH/MM3 Mean Platelet Volume 7.0 FL 7.1 FL Neutrophils (%) (Auto) 73.0 % 67.5 % Lymphocytes (%) (Auto) 15.9 % 19.9 % Monocytes (%) (Auto) 8.7 % 9.9 % Eosinophils (%) (Auto) 2.2 % 2.4 % Basophils (%) (Auto) 0.2 % 0.3 % Neutrophils # (Auto) 5.7 TH/MM3 4.7 TH/MM3 Lymphocytes # (Auto) 1.2 TH/MM3 1.4 TH/MM3 Monocytes # (Auto) 0.7 TH/MM3 0.7 TH/MM3 Eosinophils # (Auto) 0.2 TH/MM3 0.2 TH/MM3 Basophils # (Auto) 0.0 TH/MM3 0.0 TH/MM3 CBC Comment DIFF FINAL DIFF FINAL Differential Comment Prothrombin Time 11.3 SEC Prothromb Time International 1.0 RATIO Ratio Activated Partial 31.9 SEC Thromboplast Time Sodium Level 140 MEQ/L 143 MEQ/L Potassium Level 4.3 MEQ/L 4.0 MEQ/L Chloride Level 107 MEQ/L 108 MEQ/L Carbon Dioxide Level 24.1 MEQ/L 23.0 MEQ/L Anion Gap 9 MEQ/L 12 MEQ/L Blood Urea Nitrogen 31 MG/DL 23 MG/DL Creatinine 1.13 MG/DL 1.02 MG/DL Estimat Glomerular Filtration 64 ML/MIN 72 ML/MIN Rate Random Glucose 93 MG/DL 62 MG/DL Calcium Level 9.2 MG/DL 9.3 MG/DL Total Bilirubin 0.3 MG/DL 0.4 MG/DL Aspartate Amino Transf 14 U/L 20 U/L (AST/SGOT) Alanine Aminotransferase 14 U/L 15 U/L (ALT/SGPT) Alkaline Phosphatase 101 U/L 93 U/L Total Protein 8.0 GM/DL 7.9 GM/DL Albumin 3.5 GM/DL 3.2 GM/DL Lactic Acid Level 1.1 mmol/L Urine Color YELLOW Urine Turbidity HAZY Urine pH 6.0 Urine Specific [place] 1.017 Urine Protein 30 mg/dL Urine Glucose (UA) NEG mg/dL Urine Ketones NEG mg/dL Urine Occult Blood SMALL Urine Nitrite NEG Urine Bilirubin NEG Urine Urobilinogen 2.0 MG/DL Urine Leukocyte Esterase LARGE Urine RBC 8 /hpf Urine WBC /hpf Urine Squamous Epithelial <1 /hpf Cells Urine Transitional Epithelial 2 /hpf Cells Urine Mucus FEW /lpf Microscopic Urinalysis Comment CATH-CULTURE IND Imaging Last 24 hours Impressions Foot X-Ray 02/16/17 6954 Signed Impressions: Service Date/Time: January 16:43 - CONCLUSION: 1. Cortical disruption involving the distal phalanx the first digit concerning for osteomyelitis. Narendra Lopez MD Chest X-Ray 02/16/17 1634 Signed Impressions: Service Date/Time: , February 16, 2017 16:45 - CONCLUSION: 1. No focal consolidation. Blunting of the right costophrenic angle may represent a small effusion or scarring. Previous median sternotomy. Arnie Veliz MD Objective Remarks General: NAD, AAOx3 Chest: CTA Cardiac: Regular Abd: +BS, soft ND/NT Ext: Right great toe is swollen and erythematous, +1 edema of right ankle/foot, pedal pulse not palpable, posterior tibial pulse diminished bilaterally A/P Problem List: (1) Toe infection Status: Acute Plan: - Pt is a 71 y/o male with diabetes, HTN, CAD with previous CABG, and PAD s/p left femoral bypass in 2015 - He presented with complaints of right great toe infection which has been going on since August 2016. - He has been following with podiatry as an outpt and they referred the pt to the ED because they felt he may have osteomyelitis. - He admits to drainage from the wound, but denies any fever or chills. - He has had previous amputations and all of the digits of his left foot are removed. - Foot Xray --> Cortical disruption involving the distal phalanx the first digit concerning for osteomyelitis. - Pt was started on Zosyn and Vancomycin IV at admission - Podiatry is consulted - CTA with runoff of the RLE is ordered - BRADLEY is ordered - Await surgical recommendations - Supportive care (2) Osteomyelitis Status: Acute Plan: - See above. (3) UTI (urinary tract infection) Status: Acute Plan: - UA was abnormal - Await urine culture Assessment and Plan Patient examined. Assessment and plan formulated with Zayra Sebastian PA-C. I agree with the above. Problem Qualifiers (1) UTI (urinary tract infection): Qualified Code: N30.01 - Acute cystitis with hematuria Zayra Sebastian Feb 17, 2017 14:00 Jaedn Rios DO Feb 18, 2017 00:20
--- NOTE | 2017-02-17 15:31 | RADRPT ---
EXAM DATE/TIME: 02/17/2017 00:00 [facility] COMPARISON: No previous studies available for comparison. INDICATIONS : Diabetes mellitus, nonhealing ulcer right toe TECHNIQUE: Five-station segmental examination of the lower extremities was performed. Pulsed-cuff waveform tracings and pressures were recorded. Ankle-brachial indices and toe-brachial indices were calculated. PRESSURES (mmHg): Brachial (arm): Right 140 Lower Thigh: Right 148 Left 143 Calf: Right 121 Left 157 Ankle: Right >CNO 248 Left 123 Toe: Right 74 Left N/A BRADLEY: Right CNO Left 0.88 TBI: Right 0.53 Left N/A PULSED CUFF WAVEFORMS: Demonstrate normal amplitude bilaterally. CONCLUSION: Left leg: The BRADLEY on the left is in mildly diminished. The kidney on the left cannot be calculated. right leg: We were unable to occlude the distal circulation on the right. There is a normal waveform . This suggests densely calcified noncompressible distal vessels. The TBI on the right is diminished. CT angiography with runoff would be warranted for further assessment. Narendra Lopez MD on February 17, 2017 at 15:12 Board Certified Radiologist. This report was verified electronically.
[2017-02-17] MEDS ORDERED: IOHEXOL 350 MG/ML 10 ML VIAL (for RAD DIAG) IV ONE (16:34)
--- NOTE | 2017-02-17 17:56 | RADRPT ---
EXAM DATE/TIME: 02/17/2017 16:08 [facility] COMPARISON: No previous studies available for comparison. INDICATIONS : Patient with non healing ulcer right great toe. IV CONTRAST: 100 cc Omnipaque 350 (iohexol) IV RADIATION DOSE: 25.99 CTDIvol (mGy) MEDICAL HISTORY : Cardiovascular disease. Hypertension. Diabetes mellitus type 2. SURGICAL HISTORY : None. ENCOUNTER: Initial ACUITY: 1 day PAIN SCALE: 4/10 LOCATION: Right foot TECHNIQUE: Volumetric scanning was performed using a multi-row detector CT scanner. The data was post processed with a variety of visualization algorithms including full volume maximum intensity projection, multi -planar sliding thin slab reformation, curved planar reformation, and surface rendering techniques. Using automated exposure control and adjustment of the mA and/or kV according to patient size, radiat ion dose was kept as low as reasonably achievable to obtain optimal diagnostic quality images. DICO M format image data is available electronically for review and comparison. FINDINGS: Abdominal aorta: The celiac and SMA origins are widely patent. There are single renal arteries bilaterally. The renal ostia are widely patent. The infrarenal aorta is diseased but normal in caliber. Pelvis: The common iliac, internal iliac and external iliac circulation is diseased but adequate in caliber d own to the groin. Note is made of an external iliac stent on the right. This is widely patent. Right leg: The common femoral is heavily calcified but patent. The profunda femoral has an area of moderate to h igh grade stenosis at its origin. The superficial femoral is diseased throughout its course with scat tered areas of mild to moderate stenosis. There is densely calcified high grade stenosis at the adduc tor hiatus. The popliteal is aneurysmal measuring 1.4 cm it is patent throughout its course. Distally , there is 2 vessel runoff via a diseased anterior tibial and the peroneal. Left leg: The left common femoral is slightly aneurysmal suggesting previous endarterectomy. The superficial fe moral occludes at its origin. The profunda femoral is patent. There is a common femoral to above knee popliteal bypass which is widely patent. The popliteal is diseased but adequate in caliber. Distally , there is 2 vessel runoff via a diseased anterior tibial and the peroneal. CT source data: The exam demonstrates prominence of the left ureter. This can be followed down to a point just above the bladder. There is 7 mm stone within the distal left ureter. The solid organs of the abdomen are o therwise intact. There degenerative changes within the spine. CONCLUSION: 1. Diseased but adequate in flow down to level the groin bilaterally. 2. 3. Right le. The dominant abnormality is diffuse disease throughout the superficial femoral. There is high grad e stenosis at the adductor hiatus. This is densely calcified. There is diseased two-vessel runoff dis tally. 5. 6. Left le. The patient's common femoral to above knee popliteal bypass is widely patent. Distally, there is d iseased two-vessel runoff via the anterior tibial and peroneal. 8. Note is made of a 7 mm stone in the distal aspect of the left ureter. Narendra Lopez MD on February 17, 2017 at 17:43 Board Certified Radiologist. This report was verified electronically.
[2017-02-17 20:00] VITALS: BP 119/61; PULSE 88; RESP 20; TEMP 98.6; O2SAT 96
[2017-02-17] MEDS: PRAVASTATIN SOD 80 MG TAB PO SCH (21:27)
[2017-02-17] MEDS: ALPRAZolam 0.5 MG TAB PO PRN (21:31)
--- NOTE | 2017-02-17 22:21 | MB ---
cc: KADEN TERAN DPM DATE OF CONSULTATION 02/16/17 DATE OF 1945 REASON FOR CONSULTATION Right hallux ulceration, chronic. HISTORY OF PRESENT ILLNESS The patient is a 71-year-old male with multiple medical history including diabetes, hypertension, hyperlipidemia, CAD, history of CABG, PAD, bypass, nephrolithiasis. She was seen and evaluated in the podiatry clinic and recommended for admission to [facility] for workup for osteomyelitis. The patient with history of multiple amputations on the left including left first, second, third and fourth digits. PAST MEDICAL HISTORY Noncontributory. PAST SURGICAL HISTORY CABG, lithotripsy. MEDICATIONS Reported medications: 1. Vitamin D. 2. Plavix. 3. NovoLog. 4. Triceba. 5. Paroxetine. 6. Aspirin. 7. Ditropan. 8. Metformin. 9. Lisinopril. 10. Gemfibrozil. 11. Carvedilol. 12. Amlodipine. 13. Alprazolam. 14. Pravastatin. ALLERGIES CODEINE, WELLBUTRIN. SOCIAL HISTORY Former smoker two pack per day. Now on cigars and medical marijuana. PHYSICAL EXAMINATION DIRECTED EXAMINATION: Right foot diminished DP and PT. Right hallux is ulcerated at the nail bed and macerated at the tip. The nail plate is intact. There is no lytic sign noted. There is no active drainage. No fluctuance, no streaking. No pain with range of motion at the MP joint, in the IP joint of right hallux. Muscle strength intact. LABORATORY DATA WBC on 02/14/2017 7.0, RBC of 3.28, H&H 10.5 and 30.3. IMAGING STUDIES Foot x-ray on 02/14/2017 indicated cortical destruction of distal phalanx evaluated by Dr. Lopez on February 16, 2017. CTA with lower extremity runoff completed indicated high-grade stenosis at the adductor hiatus. There is disease two-vessel runoff distally. This was evaluated by Dr. Lopez on February 17, 2017. The patient currently pending a SPECT CT. ASSESSMENT/PLAN 1. Right hallux with slightly osteomyelitis distal phalanx. 2. Diabetes, neuropathy. The patient is pending evaluation by Dr. Kennedy. I did have a discussion with Dr. Kennedy and lower extremity CTA with runoff was ordered. Will follow up with the patient regarding this study. The patient would like to remain conservative in his treatment for osteo including IV antibiotics and considering hyperbarics which he is currently pending an outpatient follow up with. We will continue to follow the patient while in-house. RASHAD Wright /9:34 PM /9:55 PM ADRIAN
[2017-02-18] VITALS (7 sets, daily range): BP systolic 119–145; BP diastolic 58–74; PULSE 75–84; RESP 16–20; TEMP 97.1–98.5; O2SAT 94–97
[2017-02-18] MEDS: PIPERACIL-TAZO 3.375 GM PREMIX 50 ML IV SCH ×3 (01:53→17:02)
[2017-02-18] MEDS: INSULIN ASPART SUPPLEMENTAL SCALE SQ SCH ×4 (05:31→21:00)
[2017-02-18] MEDS: GEMFIBROZIL 600 MG TAB PO SCH ×2 (05:34→17:02)
[2017-02-18] MEDS: metFORMIN HCL 500 MG TAB PO SCH ×2 (09:00→17:03)
[2017-02-18] MEDS: SODIUM CHLORIDE 0.9% FLUSH 10 ML FLUSH IV FLUSH SCH ×2 (09:00→21:11)
[2017-02-18 09:19] LABS: AUTOMATED NEUTROPHIL # 4.4 TH/MM3 (1.8-7.7); BASOPHIL % 0.5 % (0.0-2.0); EOSINOPHIL # 0.2 TH/MM3 (0-0.4); HEMATOCRIT 32.6 % (39.0-51.0); HEMO FLAGS DIFF FINAL; LYMPH % 24.3 % (9.0-44.0); LYMPHOCYTE # 1.7 TH/MM3 (1.0-4.8); MEAN CORPUSCULAR HEMOGLOBIN 30.5 PG (27.0-34.0); MEAN CORPUSCULAR HGB CONC 33.5 % (32.0-36.0); MONO % 9.8 % (0.0-8.0); NEUT % 62.4 % (16.0-70.0); PLATELET COUNT 387 TH/MM3 (150-450); RED BLOOD COUNT 3.58 MIL/MM3 (4.50-5.90); RED CELL DISTRIBUTION WIDTH 12.8 % (11.6-17.2)
[2017-02-18] MEDS: LISINOPRIL 5 MG TAB PO SCH (09:40)
[2017-02-18] MEDS: CARVEDILOL 6.25 MG TAB PO SCH ×2 (09:40→21:11)
[2017-02-18] MEDS: PARoxetine HCL 20 MG TAB PO SCH (09:41)
[2017-02-18] MEDS: ASPIRIN EC 81 MG TABEC PO SCH (09:41)
[2017-02-18] MEDS: DOCUSATE SODIUM 50 MG/SENNA 8.6 MG TAB PO SCH ×2 (09:41→21:00)
[2017-02-18] MEDS: amLODIPine BESYLATE 5 MG TAB PO SCH (09:41)
[2017-02-18] MEDS: OXYBUTYNIN CHLORIDE 5 MG TAB PO SCH ×3 (09:41→17:02)
[2017-02-18] MEDS: CLOPIDOGREL 75 MG TAB PO SCH (09:42)
[2017-02-18 09:58] LABS: BICARBONATE 26.4 MEQ/L (21.0-32.0); MAGNESIUM 1.8 MG/DL (1.5-2.5); POTASSIUM 4.3 MEQ/L (3.5-5.1)
--- NOTE | 2017-02-18 14:37 | HHI.PR ---
Subjective Remarks No new complaints. Objective Vitals Vital Signs Date Time Temp Pulse Resp B/P Pulse Ox O2 Delivery O2 Flow Rate FiO2 02/18/17 12:26 97.1 77 18 120/63 96 02/18/17 08:38 97.3 75 18 131/66 97 02/18/17 04:00 97.2 79 20 122/58 96 02/18/17 00:00 98.1 79 20 145/71 97 02/17/17 20:00 98.6 88 20 119/61 96 02/17/17 02/17/17 02/18/17 15:00 23:00 07:00 Intake Total 540 ml Output Total 200 ml 200 ml 100 ml Balance -200 ml -200 ml 440 ml IV Total 540 ml Output Urine Total 200 ml 200 ml 100 ml # Voids 5 5 # Bowel Movements 0 0 Result Diagram: 02/18/17 0752 02/18/17 0752 Imaging Last 24 hours Impressions Foot X-Ray 02/16/17 1634 Signed Impressions: Service Date/Time: January 16:43 - CONCLUSION: 1. Cortical disruption involving the distal phalanx the first digit concerning for osteomyelitis. Narendra Lopez MD Chest X-Ray 02/16/17 1634 Signed Impressions: Service Date/Time: January 16:45 - CONCLUSION: 1. No focal consolidation. Blunting of the right costophrenic angle may represent a small effusion or scarring. Previous median sternotomy. Arnie Veliz MD Objective Remarks General: NAD, AAOx3 Chest: CTA Cardiac: Regular Abd: +BS, soft ND/NT Ext: Right great toe is swollen and erythematous, +1 edema of right ankle/foot, pedal pulse not palpable, posterior tibial pulse diminished bilaterally A/P Problem List: (1) Toe infection Status: Acute Plan: - Comgmt with Podiatry - Pt is a 71 y/o male with diabetes, HTN, CAD with previous CABG, and PAD s/p left femoral bypass in 2015 - He presented with complaints of right great toe infection which has been going on since August 2016. - He has been following with podiatry as an outpt and they referred the pt to the ED because they felt he may have osteomyelitis. - He admits to drainage from the wound, but denies any fever or chills. - He has had previous amputations and all of the digits of his left foot are removed. - Foot Xray --> Cortical disruption involving the distal phalanx the first digit concerning for osteomyelitis. - Zosyn (02/17 - 02/18/17) - Vancomycin (02/17 - present) - CTA with runoff (02/17/17) --> results noted - BRADLEY (02/17/17) - Case d/w Dr. Nye (02/18/17) - Pt does NOT want amputation at this time - will request PICC and treat with IV vancomycin x 6 week - Case d/w pt's Vascular Surgeon, Dr. Kennedy. He will formally consult 02/20. - Plan for SFA atherectomy 02/21/17 - Supportive care (2) Osteomyelitis Status: Acute Plan: - See above. (3) UTI (urinary tract infection) Status: Acute Plan: - UA was abnormal - urine cx shows < 10 CFU Problem Qualifiers (1) UTI (urinary tract infection): Qualified Code: N30.01 - Acute cystitis with hematuria Jaden Rios DO Feb 18, 2017 14:37
--- NOTE | 2017-02-18 15:29 | RADRPT ---
EXAM DATE/TIME: 02/17/2017 11:44 [facility] COMPARISON: No previous studies available for comparison. INDICATIONS : Abcess. Wound on great toe of right foot. DOSE: 21.0 mCi Tc99m Ceretec labeled white blood cells IV SPECT IMAGIN hrs, 20 hrs IMAGNG: SPECT/CT imaging with fusion was performed. RADIATION DOSE: 4.63 CTDIvol (mGy) ; Multiple Day Study MEDICAL HISTORY : Hypertension. Diabetes mellitus type 2. Coronary artery disease and peripheral artery disease. SURGICAL HISTORY : CABG Femoral bypass, ENCOUNTER: Initial ACUITY: 1 week PAIN SCALE: 0/10 LOCATION: Right Foot. TECHNIQUE: Following the in vitro labeling of autologous white cells and reinjection, whole body scan was perfor med at the specified times. SPECT imaging was performed at the specified time in sagittal, axial and coronal planes. Attenuation correction was performed with the computed tomography and both the atten uation correction and non-attenuation corrected data sets were reviewed. FINDINGS: There is intense uptake seen at the distal aspect of the right first distal phalanx. No other areas o f abnormal uptake are seen. The patient is status post amputation at the level of the metatarsals at the left foot. CONCLUSION: Osteomyelitis involving the distal aspect of the first distal phalanx on the right. Art Campbell MD on February 18, 2017 at 15:21 Board Certified Radiologist. This report was verified electronically.
[2017-02-18] MEDS: VANCOMYCIN INJ 1,500 MG in SODIUM CHLORID 0.9% 500 ML INJ 500 ML IV SCH (17:02)
[2017-02-18] MEDS ORDERED: SODIUM CHLORIDE 0.9% FLUSH 10 ML FLUSH IV FLUSH PRN (17:30)
[2017-02-18] MEDS ORDERED: PHARMACY ORDERED LAB ONE (17:45)
--- NOTE | 2017-02-18 18:31 | RADRPT ---
EXAM DATE/TIME: 02/18/2017 18:04 [facility] COMPARISON: CHEST SINGLE AP, February 16, 2017, 16:45. INDICATIONS : Evaluate PICC line placement. MEDICAL HISTORY : Hypertension. Diabetes mellitus type II. SURGICAL HISTORY : CABG. Amputation left toes ENCOUNTER: Subsequent ACUITY: 1 day PAIN SCORE: 0/10 LOCATION: Bilateral chest FINDINGS: Median sternotomy wires are noted status post cardiac surgery. A right-sided PICC line has its tip i n the right atrium. The heart is stable. There is elevation of the right hemidiaphragm which is unc hanged. No acute focal pulmonary infiltrate is noted. CONCLUSION: 1. Elevation of right hemidiaphragm which is stable. 2. No acute focal pulmonary infiltrate or pulmonary vascular congestion. Neel Harvey MD on February 18, 2017 at 18:26 Board Certified Radiologist. This report was verified electronically.
--- NOTE | 2017-02-18 19:56 | MB ---
cc: KADEN TERAN DPM, CARMEN A. M.D. MILIRON, HILLARY SUTTON, JAMES DATE OF CONSULTATION: 02/18/2017 REASON FOR CONSULTATION: Nonhealing, inflamed neurotrophic ulcer, right great toe. HISTORY OF PRESENT ILLNESS: This 71-year-old hypertensive type 2 diabetic male with hypercholesterolemia has a chronic, nonhealing neurotrophic ulceration involving the distal pulp pad right great toe. Over the last week, he developed progressive erythema and edema surrounding the ulceration and globally involving the right great toe - typical of cellulitis. He has well-documented peripheral artery disease. While living in [facility] in 2004, he underwent left SFA rotational atherectomy followed by a right SFA anterior tibial orbital atherectomy and balloon angioplasty in November of 2013. In June of 2015, a right external iliac stent was placed. The right external iliac stent had occluded creating limb-threatening right lower extremity ischemia. Successful re-establishment of stent patency was accomplished by percutaneous PTCA in August of this year. At that time, angiograms also disclosed diffuse, multiple segmental stenoses throughout the right SFA and popliteal regions. He also has a patent left femoropopliteal bypass in situ performed for contralateral limb-threatening ischemia. PAST MEDICAL HISTORY: 1. Hypertension. 2. Type 2 diabetes mellitus. 3. Coronary artery disease status post silent myocardial infarction. 4. Hypercholesterolemia. 5. Gout. PAST SURGICAL HISTORY: 1. Empyema drainage, 1991. 2. Lithotripsy in 1994. 3. Left transmetatarsal amputation toes one through four. 4. Left superficial femoral artery atherectomy in 2004 - [facility]. 5. Right superficial femoral artery / anterior tibial orbital atherectomy with PTBA November 28, 2013. 6. Right external iliac stent July 14, 2015. 7. Right external iliac in-stent stenosis balloon angioplasty August of 2016. MEDICATIONS: Detailed in the medical record form. ALLERGIES: Detailed in the medical record form. PHYSICAL EXAMINATION: VITAL SIGNS: Blood pressure 150/70. Pulse 86. Respirations 20. HEIGHT: 5 feet 7 inches. GENERAL: Well-developed, well-nourished 71-year-old male with pleasant affect. LUNGS: Lungs are symmetrically expanding and clear. CARDIAC: Rhythm is regular. No rubs or gallops. No carotid bruits. No neck vein distension or HJR. Femoral pulses are 1+ right, 2+ left. Popliteal pulses nonpalpable right, 2+ left. Pedal pulses nonpalpable right, 1+ left. The left femoropopliteal in situ vein graft is pulsatile throughout. EXTREMITIES: A chronic-appearing superficial neurotrophic ulceration is present on the right great toe, distal pulp pad. Erythema and edema globally involves the right great toe. There is no crepitus or drainage to suggest progressive soft tissue infection. Left transmetatarsal amputation toes one through four well-healed, uncomplicated. NEUROLOGIC: Stocking-glove hypesthesia typical of diabetic peripheral neuropathy, moderately advanced. No gross lateralizing deficits. His most recent BRADLEY on January 10, 2017 - right 0.78 / left 0.89. IMPRESSION: Non-healed, inflamed neurotrophic ulcer right great toe status post right external iliac stent June of 2015, right SFA and anterior tibial orbital atherectomy November of 2013. Angiograms in August of this year confirm re-stenosis involving the SFA and popliteal arteries. His right external iliac stent may also have developed some re-stenosis as well. 1. I will arrange for CT angiogram to reassess right lower extremity perfusion. 2. Continue IV antibiotics in the meantime. Further recommendations will depend upon angiographic findings. Thank you for allowing me to participate in this gentleman's care. MD WOLFGANG Gramajo/BRIELLE /2:27 PM /7:43 PM
[2017-02-18] MEDS: PRAVASTATIN SOD 80 MG TAB PO SCH (21:11)
[2017-02-18] MEDS: ALPRAZolam 0.5 MG TAB PO PRN (21:15)
[2017-02-19 04:19] VITALS: BP 115/57; PULSE 79; RESP 16; TEMP 97.8; O2SAT 98
[2017-02-19] MEDS: GEMFIBROZIL 600 MG TAB PO SCH ×2 (06:33→16:07)
[2017-02-19] MEDS: INSULIN ASPART SUPPLEMENTAL SCALE SQ SCH ×4 (06:33→22:21)
[2017-02-19 08:10] VITALS: BP 156/78; PULSE 88; RESP 18; TEMP 96.6; O2SAT 96
[2017-02-19] MEDS: COLLAGENASE OINT 30 GM TUBE TOPICAL SCH (09:00)
[2017-02-19] MEDS: metFORMIN HCL 500 MG TAB PO SCH ×2 (09:00→18:00)
[2017-02-19] MEDS: SODIUM CHLORIDE 0.9% FLUSH 10 ML FLUSH IV FLUSH SCH ×3 (09:00→21:00)
[2017-02-19] MEDS: DOCUSATE SODIUM 50 MG/SENNA 8.6 MG TAB PO SCH ×2 (09:00→21:00)
[2017-02-19] MEDS: ASPIRIN EC 81 MG TABEC PO SCH (09:33)
[2017-02-19] MEDS: CARVEDILOL 6.25 MG TAB PO SCH ×2 (09:33→22:16)
[2017-02-19] MEDS: OXYBUTYNIN CHLORIDE 5 MG TAB PO SCH ×3 (09:34→18:00)
[2017-02-19] MEDS: PARoxetine HCL 20 MG TAB PO SCH (09:34)
[2017-02-19] MEDS: CLOPIDOGREL 75 MG TAB PO SCH (09:34)
[2017-02-19] MEDS: amLODIPine BESYLATE 5 MG TAB PO SCH (09:35)
[2017-02-19] MEDS: LISINOPRIL 5 MG TAB PO SCH (09:35)
[2017-02-19] MEDS ORDERED: PHARMACY ORDERED LAB ONE (11:45)
[2017-02-19] MEDS: VANCOMYCIN INJ 1,500 MG in SODIUM CHLORID 0.9% 500 ML INJ 500 ML IV SCH (11:53)
[2017-02-19 12:57] VITALS: BP 139/69; PULSE 76; RESP 18; TEMP 96.8; O2SAT 95
--- NOTE | 2017-02-19 13:45 | HHI.PR ---
Subjective Remarks No new complaints. Pt is comfortable. Objective Vitals Vital Signs Date Time Temp Pulse Resp B/P Pulse Ox O2 Delivery O2 Flow Rate FiO2 02/19/17 12:57 96.8 76 18 139/69 95 02/19/17 08:10 96.6 88 18 156/78 96 02/19/17 04:19 97.8 79 16 115/57 98 02/18/17 23:58 97.9 75 16 119/68 95 02/18/17 20:00 98.5 84 16 121/74 94 02/18/17 16:09 97.3 79 18 137/68 97 02/18/17 02/18/17 02/19/17 15:00 23:00 07:00 Intake Total 240 ml Output Total 250 ml Balance 240 ml -250 ml Intake Oral 240 ml Output Urine Total 250 ml # Voids 5 2 # Bowel Movements 1 Result Diagram: 02/18/17 0752 02/18/17 0752 Imaging Last 24 hours Impressions Foot X-Ray 02/16/17 1634 Signed Impressions: Service Date/Time: January 16:43 - CONCLUSION: 1. Cortical disruption involving the distal phalanx the first digit concerning for osteomyelitis. Narendra Lopez MD Chest X-Ray 02/16/17 1634 Signed Impressions: Service Date/Time: January 16:45 - CONCLUSION: 1. No focal consolidation. Blunting of the right costophrenic angle may represent a small effusion or scarring. Previous median sternotomy. Arnie Veliz MD Objective Remarks General: NAD, AAOx3 Chest: CTA Cardiac: Regular Abd: +BS, soft ND/NT Ext: Right great toe is swollen and erythematous, +1 edema of right ankle/foot, pedal pulse not palpable, posterior tibial pulse diminished bilaterally A/P Problem List: (1) Toe infection Status: Acute Plan: - Comgmt with Podiatry - Pt is a 71 y/o male with diabetes, HTN, CAD with previous CABG, and PAD s/p left femoral bypass in 2015 - He presented with complaints of right great toe infection which has been going on since August 2016. - He has been following with podiatry as an outpt and they referred the pt to the ED because they felt he may have osteomyelitis. - He admits to drainage from the wound, but denies any fever or chills. - He has had previous amputations and all of the digits of his left foot are removed. - Foot Xray --> Cortical disruption involving the distal phalanx the first digit concerning for osteomyelitis. - Zosyn (02/17 - 02/18/17) - Vancomycin (02/17 - present) - CTA with runoff (02/17/17) --> results noted - BRADLEY (02/17/17) - Case d/w Dr. Nye (02/18/17) - Pt does NOT want amputation at this time - will request PICC and treat with IV vancomycin x 6 week - Case d/w pt's Vascular Surgeon (02/18/17) - Plan for SFA atherectomy 02/21/17 - Supportive care 02/19/17 - pt interviewed and examined - continue current treatment plan as outlined above. (2) Osteomyelitis Status: Acute Plan: - See above. (3) UTI (urinary tract infection) Status: Acute Plan: - UA was abnormal - urine cx shows < 10 CFU Problem Qualifiers (1) UTI (urinary tract infection): Qualified Code: N30.01 - Acute cystitis with hematuria Jaden Rios DO Feb 19, 2017 13:45
[2017-02-19] MEDS: ALPRAZolam 0.5 MG TAB PO PRN (16:07)
[2017-02-19 16:40] VITALS: BP 137/84; PULSE 79; RESP 18; TEMP 98.5; O2SAT 94
[2017-02-19 20:00] VITALS: BP 102/53; PULSE 85; RESP 20; TEMP 97.7; O2SAT 90
[2017-02-19] MEDS: PRAVASTATIN SOD 80 MG TAB PO SCH (22:17)
[2017-02-20] VITALS: BP 125/62; PULSE 84; RESP 20; TEMP 98.8; O2SAT 96
[2017-02-20 04:00] VITALS: BP 122/58; PULSE 82; RESP 20; TEMP 97.1; O2SAT 99
[2017-02-20] MEDS: GEMFIBROZIL 600 MG TAB PO SCH ×2 (06:47→15:44)
[2017-02-20] MEDS: VANCOMYCIN INJ 1,500 MG in SODIUM CHLORID 0.9% 500 ML INJ 500 ML IV SCH (06:47)
[2017-02-20] MEDS: INSULIN ASPART SUPPLEMENTAL SCALE SQ SCH ×4 (06:50→20:42)
[2017-02-20 08:00] VITALS: BP 131/70; PULSE 80; RESP 18; TEMP 96.8; O2SAT 95
[2017-02-20] MEDS: PARoxetine HCL 20 MG TAB PO SCH (08:42)
[2017-02-20] MEDS: CLOPIDOGREL 75 MG TAB PO SCH (08:42)
[2017-02-20] MEDS: DOCUSATE SODIUM 50 MG/SENNA 8.6 MG TAB PO SCH ×2 (08:43→20:43)
[2017-02-20] MEDS: SODIUM CHLORIDE 0.9% FLUSH 10 ML FLUSH IV FLUSH SCH ×3 (08:43→20:33)
[2017-02-20] MEDS: LISINOPRIL 5 MG TAB PO SCH (08:43)
[2017-02-20] MEDS: ASPIRIN EC 81 MG TABEC PO SCH (08:43)
[2017-02-20] MEDS: CARVEDILOL 6.25 MG TAB PO SCH ×2 (08:43→20:33)
[2017-02-20] MEDS: metFORMIN HCL 500 MG TAB PO SCH ×2 (08:43→17:18)
[2017-02-20] MEDS: OXYBUTYNIN CHLORIDE 5 MG TAB PO SCH ×3 (08:43→17:18)
[2017-02-20] MEDS: amLODIPine BESYLATE 5 MG TAB PO SCH (08:44)
[2017-02-20] MEDS: COLLAGENASE OINT 30 GM TUBE TOPICAL SCH (08:44)
--- NOTE | 2017-02-20 11:58 | HHI.PR ---
Subjective Remarks doing ok. no new complaints Objective Vitals heent neg heart reg lung cta abd s/nt ext right great toe redness better but maceration/ulceration noted. Vital Signs Date Time Temp Pulse Resp B/P Pulse Ox O2 Delivery O2 Flow Rate FiO2 02/20/17 08:00 96.8 80 18 131/70 95 02/20/17 04:00 97.1 82 20 122/58 99 02/20/17 00:00 98.8 84 20 125/62 96 02/19/17 20:00 97.7 85 20 102/53 90 02/19/17 16:40 98.5 79 18 137/84 94 02/19/17 12:57 96.8 76 18 139/69 95 02/19/17 02/19/17 02/20/17 15:00 23:00 07:00 Intake Total 480 ml 120 ml Balance 480 ml 120 ml Intake Oral 480 ml 120 ml # Voids 5 11 # Bowel Movements 1 0 Result Diagram: 02/18/17 0752 02/20/17 0640 Imaging Last 24 hours Impressions Foot X-Ray 02/16/17 1634 Signed Impressions: Service Date/Time: January 16:43 - CONCLUSION: 1. Cortical disruption involving the distal phalanx the first digit concerning for osteomyelitis. Narendra Lopez MD Chest X-Ray 02/16/17 1634 Signed Impressions: Service Date/Time: January 16:45 - CONCLUSION: 1. No focal consolidation. Blunting of the right costophrenic angle may represent a small effusion or scarring. Previous median sternotomy. Arnie Veliz MD A/P Problem List: (1) Toe infection Status: Acute Plan: - Pt is a 71 y/o male with diabetes, HTN, CAD with previous CABG, and PAD s/p left femoral bypass in 2015 - He presented with complaints of right great toe infection which has been going on since August 2016. - He has been following with podiatry as an outpt and they referred the pt to the ED because they felt he may have osteomyelitis. - He admits to drainage from the wound, but denies any fever or chills. - He has had previous amputations and all of the digits of his left foot are removed. - Foot Xray --> Cortical disruption involving the distal phalanx the first digit concerning for osteomyelitis. - Zosyn (02/17 - 02/18/17) - Vancomycin (02/17 - present) - CTA with runoff (02/17/17) --> results noted - BRADLEY (02/17/17) - Case d/w Dr. Nye (02/18/17) - Pt does NOT want amputation at this time - Case d/w pt's Vascular Surgeon (02/18/17) - Plan for SFA atherectomy 02/21/17 - wound cx results noted. picc placed. ID consulted and will decide on d/c abx regimen (2) Osteomyelitis Status: Acute Plan: - See above. (3) UTI (urinary tract infection) Status: Acute Plan: - UA was abnormal - urine cx shows < 10 CFU Problem Qualifiers (1) UTI (urinary tract infection): Qualified Code: N30.01 - Acute cystitis with hematuria Bruno Mccarthy MD Feb 20, 2017 11:58
[2017-02-20 12:32] VITALS: BP 174/79; PULSE 75; RESP 18; TEMP 97.1; O2SAT 96
[2017-02-20] MEDS: cefTRIAXone INJ 2,000 MG in SODIUM CHLORIDE 0.9% INJ 100 ML IV SCH (13:58)
--- NOTE | 2017-02-20 14:09 | MB ---
cc: DAMIAN BOBO MD DATE OF CONSULTATION: 02/20/[address] Mccarthy. REASON FOR CONSULTATION Right great toe infection with osteomyelitis. HISTORY OF PRESENT ILLNESS This is a 71-year-old white male who presented to the emergency department from podiatry office because of a wound on the right great toe with drainage. The patient notes that about a week ago he started having problems with drainage from the toe. Over the past few days he started taking an antibiotic which he had left over from prior prescription and he noticed redness, streaking up his left foot and was evaluated by his group social worker and recommended to come to the emergency department. He denies fever or chills. He states that he has very little pain. An x-ray of the foot was performed and it shows cortical destruction involving the distal phalanx of the first digit concerning for osteomyelitis. The patient had a tumor localization study which shows osteomyelitis involving the distal aspect of the first distal phalanx. He has been evaluated by vascular surgery. Plans are for SFA atherectomy tomorrow. Culture from the foot drainage has group B strep, Providencia and staph aureus, oxacillin sensitive. The patient is in no distress. He has no fever. White count is normal. The patient was offered to possibly have surgery for the foot infection but he declines at this time. PAST MEDICAL HISTORY 1. Diabetes mellitus. 2. Diabetic neuropathy. 3. Coronary artery disease. 4. Coronary artery bypass graft surgery. 5. Hyperlipidemia. 6. History of kidney stone. 7. Empyema of the lung in 1980s. 8. Amputation of toes two through five on the left foot. ALLERGIES WELLBUTRIN AND CODEINE. MEDICATIONS 1. Vancomycin. 2. Norvasc. 3. Aspirin. 4. Plavix. 5. Prinivil. 6. Glucophage. 7. Ditropan. 8. Paxil. 9. Lopid. 10. Coreg. 11. Pravachol. 12. Adriana-Colace. 13. Insulin. 14. Xanax. SOCIAL HISTORY Former smoker, reportedly has a cigar daily. No alcohol or medical marijuana. FAMILY HISTORY Noncontributory. REVIEW OF SYSTEMS Review of systems negative on 10-point review. The patient has decreased sensation at the lateral aspect of the right foot and also at the plantar aspect of the right foot. PHYSICAL EXAMINATION GENERAL: This is a well-developed male who is in no acute distress. He is awake and alert and oriented. VITAL SIGNS: Temperature 97.1, BP 194/79, respirations 18, heart rate 75. HEENT: Head is atraumatic. Extraocular movements grossly intact. Pupils reactive to light. No icterus. Oropharynx moist mucosa without lesions. NECK: Supple without adenopathy. LUNGS: Clear breath sounds bilateral. HEART: Regular rate and rhythm without murmurs, rubs or gallops. ABDOMEN: Bowel sounds present, soft, nontender. RECTAL: Not performed. EXTREMITIES: The right great toe is erythematous. There is maceration of the pulp of the great toe and there is some maceration towards the nailbed and there is a creamy drop of drainage on palpation of the great toe coming from the edge of the nailbed. The entire right great toe is erythematous. The remaining digits have no erythema. No diffuse skin rash. NEURO: Nonfocal. PSYCHE: The patient is calm and cooperative. LABORATORY DATA WBC 7.0, platelets 387, hemoglobin 10.9, creatinine 0.92, estimated GFR 82. Blood culture from 02/16 has no growth. IMPRESSION 1. Osteomyelitis of the right great toe. 2. Diabetic wound infection due to group B strep, Providencia and staph aureus. 3. Diabetes mellitus type 2. RECOMMENDATIONS 1. Discontinue vancomycin. 2. Begin ceftriaxone intravenous which should cover all three organisms recovered on culture. 3. Plan on 6 weeks of IV antibiotics in this patient who declined surgery and for periodic sedimentation rate to assess response. Thank you for this consultation. The patient's progress will be followed and further recommendations will be given on followup if necessary. Damian Bobo MD FD/[place] /1:05 PM /1:51 PM ADRI[facility]
[2017-02-20] MEDS: ALPRAZolam 0.5 MG TAB PO PRN (15:44)
[2017-02-20 15:45] VITALS: BP 132/84; PULSE 83; RESP 18; TEMP 97.8; O2SAT 97
[2017-02-20] MEDS: PRAVASTATIN SOD 80 MG TAB PO SCH (20:33)
[2017-02-20 21:00] VITALS: BP 160/80; PULSE 83; RESP 17; TEMP 97.8; O2SAT 95
[2017-02-21] VITALS (7 sets, daily range): BP systolic 123–152; BP diastolic 67–79; PULSE 68–88; RESP 17–19; TEMP 97.3–99.3; O2SAT 95–98
[2017-02-21] MEDS: INSULIN ASPART SUPPLEMENTAL SCALE SQ SCH ×4 (05:35→20:43)
[2017-02-21] MEDS: GEMFIBROZIL 600 MG TAB PO SCH ×2 (06:27→17:59)
[2017-02-21] MEDS ORDERED: HEPARIN SODIUM - SQ 10,000 UNITS/ML VIAL ONE (07:44)
[2017-02-21] MEDS ORDERED: PROTAMINE SULFATE 50 MG/5 ML VIAL ONE (07:45)
[2017-02-21] MEDS: PARoxetine HCL 20 MG TAB PO SCH (08:20)
[2017-02-21] MEDS: SODIUM CHLORIDE 0.9% FLUSH 10 ML FLUSH IV FLUSH SCH ×2 (08:20)
[2017-02-21] MEDS: LISINOPRIL 5 MG TAB PO SCH (08:20)
[2017-02-21] MEDS: DOCUSATE SODIUM 50 MG/SENNA 8.6 MG TAB PO SCH ×2 (08:20→20:44)
[2017-02-21] MEDS: amLODIPine BESYLATE 5 MG TAB PO SCH (08:20)
[2017-02-21] MEDS: metFORMIN HCL 500 MG TAB PO SCH ×2 (08:20→17:59)
[2017-02-21] MEDS: CARVEDILOL 6.25 MG TAB PO SCH ×2 (08:20→20:43)
[2017-02-21] MEDS: ASPIRIN EC 81 MG TABEC PO SCH (08:20)
[2017-02-21] MEDS: OXYBUTYNIN CHLORIDE 5 MG TAB PO SCH ×3 (08:20→17:59)
[2017-02-21] MEDS: CLOPIDOGREL 75 MG TAB PO SCH (08:21)
[2017-02-21] MEDS: COLLAGENASE OINT 30 GM TUBE TOPICAL SCH (08:21)
--- NOTE | 2017-02-21 09:46 | HHI.PR ---
Subjective Remarks doing ok Objective Vitals heart reg lung cta abd s/nt ext right great toe ulcerated Vital Signs Date Time Temp Pulse Resp B/P Pulse Ox O2 Delivery O2 Flow Rate FiO2 02/21/17 08:08 97.3 81 17 123/67 98 02/21/17 04:40 97.9 88 19 143/76 95 02/21/17 00:15 98.0 80 18 145/79 96 02/20/17 21:00 97.8 83 17 160/80 95 02/20/17 15:45 97.8 83 18 132/84 97 02/20/17 12:32 97.1 75 18 174/79 96 02/20/17 02/20/17 02/21/17 15:00 23:00 07:00 Intake Total 960 ml 1000 ml 400 ml Output Total 150 ml Balance 810 ml 1000 ml 400 ml Intake Oral 960 ml 1000 ml 400 ml Output Urine Total 150 ml # Voids 5 0 2 # Bowel Movements 2 0 0 Result Diagram: 02/18/17 0752 02/20/17 0640 Imaging Last 24 hours Impressions Foot X-Ray 02/16/17 1634 Signed Impressions: Service Date/Time: January 16:43 - CONCLUSION: 1. Cortical disruption involving the distal phalanx the first digit concerning for osteomyelitis. Narendra Lopez MD Chest X-Ray 02/16/174 Signed Impressions: Service Date/Time: January 16:45 - CONCLUSION: 1. No focal consolidation. Blunting of the right costophrenic angle may represent a small effusion or scarring. Previous median sternotomy. Arnie Veliz MD A/P Problem List: (1) Toe infection Status: Acute Plan: - Pt is a 71 y/o male with diabetes, HTN, CAD with previous CABG, and PAD s/p left femoral bypass in 2015 - He presented with complaints of right great toe infection which has been going on since August 2016. - He has been following with podiatry as an outpt and they referred the pt to the ED because they felt he may have osteomyelitis. - He admits to drainage from the wound, but denies any fever or chills. - He has had previous amputations and all of the digits of his left foot are removed. - Foot Xray --> Cortical disruption involving the distal phalanx the first digit concerning for osteomyelitis. - Zosyn and vanco stopped 02/20 - rocephin started 02/20 - CTA with runoff (02/17/17) --> results noted - BRADLEY (02/17/17) - Case d/w Dr. Nye (02/18/17) - Pt does NOT want amputation at this time - Case d/w pt's Vascular Surgeon (02/18/17) - Plan for SFA atherectomy 02/21/17 - wound cx results noted. mssa/group b strep/ providencia. agree with 6 weeks rocephin picc placed. ID consulted and will need to f/u with ID outpt (2) Osteomyelitis Status: Acute Plan: - See above. (3) UTI (urinary tract infection) Status: Acute Plan: - UA was abnormal - urine cx shows < 10 CFU Problem Qualifiers (1) UTI (urinary tract infection): Qualified Code: N30.01 - Acute cystitis with hematuria Bruno Mccarthy MD Feb 21, 2017 09:46
[2017-02-21] MEDS ORDERED: BUPIVACAINE/EPINEPHRINE 0.5% PF 30 ML VIAL INFIL ONE (11:00)
[2017-02-21] MEDS ORDERED: IOHEXOL 300 MG/ML 50 ML BTL (for RAD DIAG) ONE (11:00)
[2017-02-21] MEDS: HEPARIN SODIUM - IV 10,000 UNITS/10 ML VIAL ONE ×2 (11:19→11:44)
[2017-02-21] MEDS: cefTRIAXone INJ 2,000 MG in SODIUM CHLORIDE 0.9% INJ 100 ML IV SCH ×2 (11:28→14:00)
[2017-02-21] MEDS ORDERED: SODIUM CHLORID 0.9% 500 ML INJ 500 ML IV ONE (12:00)
[2017-02-21] MEDS ORDERED: ePHEDrine/NS 25 MG/5 ML SYR IV ONE (12:00)
[2017-02-21] MEDS ORDERED: PROPOFOL 200 MG/20 ML AMP IV ONE (12:00)
[2017-02-21] MEDS ORDERED: NITROGLYCERIN 1000 MCG/5 ML VIAL OTHER ONE (12:00)
[2017-02-21] MEDS ORDERED: LACTATED RINGER'S 1000 ML INJ 1,000 ML IV ONE (12:00)
[2017-02-21] MEDS ORDERED: PHENYLEPH/NS 1000 MCG/10 ML SYR IV ONE (12:00)
[2017-02-21] MEDS ORDERED: SODIUM CHLORIDE 0.9% IV FLUSH ONE (12:00)
[2017-02-21] MEDS ORDERED: DO NOT ADM ANY ANTICOAGULANT DRUGS PRN (12:30)
[2017-02-21] MEDS ORDERED: SODIUM CHLOR 0.9% 1000 ML BAG IV ONE (12:40)
[2017-02-21] MEDS: PRAVASTATIN SOD 80 MG TAB PO SCH (20:43)
[2017-02-21] MEDS: ALPRAZolam 0.5 MG TAB PO PRN (20:46)
[2017-02-22] VITALS (25 sets, daily range): BP systolic 105–164; BP diastolic 54–84; PULSE 74–90; RESP 16–18; TEMP 98.6–99.2; O2SAT 95–99
[2017-02-22] MEDS: GEMFIBROZIL 600 MG TAB PO SCH ×2 (06:15→16:38)
[2017-02-22] MEDS: INSULIN ASPART SUPPLEMENTAL SCALE SQ SCH ×4 (06:16→21:00)
--- NOTE | 2017-02-22 08:46 | HHI.PR ---
Subjective Remarks eager for d/c. no pain Objective Vitals heart reg lung cta abd s/nt ext right great toe ulceration. no redness. Vital Signs Date Time Temp Pulse Resp B/P Pulse Ox O2 Delivery O2 Flow Rate FiO2 02/22/17 07:01 77 02/22/17 04:00 88 02/22/17 04:00 98.7 88 18 130/64 97 02/22/17 02:00 86 02/22/17 00:00 81 02/22/17 00:00 99.0 81 18 128/64 96 02/21/17 22:00 86 02/21/17 20:00 99.3 86 18 152/79 98 02/21/17 20:00 86 02/21/17 17:30 97 21 02/21/17 15:15 97.8 68 18 141/70 97 02/21/17 14:30 62 13 139/71 99 Nasal Cannula 2 02/21/17 14:15 97.8 67 12 141/67 98 Nasal Cannula 2 02/21/17 14:00 65 13 140/67 98 Nasal Cannula 2 02/21/17 13:45 66 12 129/58 98 Nasal Cannula 2 02/21/17 13:30 66 14 139/65 98 Nasal Cannula 2 02/21/17 13:15 65 13 133/63 99 Nasal Cannula 2 02/21/17 13:00 65 12 126/63 97 Nasal Cannula 2 02/21/17 12:45 68 14 131/63 94 Nasal Cannula 2 02/21/17 12:30 97.7 70 16 110/64 94 Nasal Cannula 2 02/21/17 02/21/17 02/22/17 15:00 23:00 07:00 Intake Total 1120 ml 651 ml 596 ml Output Total 530 ml 500 ml 800 ml Balance 590 ml 151 ml -204 ml Intake Oral 20 ml 240 ml 240 ml IV Total 411 ml 356 ml Other 1100 ml Output Urine Total 500 ml 500 ml 800 ml Estimated Blood Loss 30 ml # Bowel Movements 0 Result Diagram: 02/18/17 0752 02/22/17 0400 Imaging Last 24 hours Impressions Foot X-Ray 02/16/17 1634 Signed Impressions: Service Date/Time: January 16:43 - CONCLUSION: 1. Cortical disruption involving the distal phalanx the first digit concerning for osteomyelitis. Narendra Lopez MD Chest X-Ray 02/16/17 1634 Signed Impressions: Service Date/Time: January 16:45 - CONCLUSION: 1. No focal consolidation. Blunting of the right costophrenic angle may represent a small effusion or scarring. Previous median sternotomy. Arnie Veliz MD A/P Problem List: (1) Toe infection Status: Acute Plan: - Pt is a 71 y/o male with diabetes, HTN, CAD with previous CABG, and PAD s/p left femoral bypass in 2015 - He presented with complaints of right great toe infection which has been going on since August 2016. - He has been following with podiatry as an outpt and they referred the pt to the ED because they felt he may have osteomyelitis. - He admits to drainage from the wound, but denies any fever or chills. - He has had previous amputations and all of the digits of his left foot are removed. - Foot Xray --> Cortical disruption involving the distal phalanx the first digit concerning for osteomyelitis. - Zosyn and vanco stopped 02/20 - rocephin started 02/20 - CTA with runoff (02/17/17) --> results noted - BRADLEY (02/17/17) - Case d/w Dr. Nye (02/18/17) - Pt does NOT want amputation at this time - Case d/w pt's Vascular Surgeon (02/18/17) - SFA atherectomy 02/21/17 - wound cx results noted. mssa/group b strep/ providencia. agree with 6 weeks rocephin picc placed. ID consulted and will need to f/u with ID outpt. f/u podiatry. (2) Osteomyelitis Status: Acute Plan: - See above. (3) UTI (urinary tract infection) Status: Acute Plan: - UA was abnormal - urine cx shows < 10 CFU Problem Qualifiers (1) UTI (urinary tract infection): Qualified Code: N30.01 - Acute cystitis with hematuria Bruno Mccarthy MD Feb 22, 2017 08:46
[2017-02-22] MEDS: CLOPIDOGREL 75 MG TAB PO SCH (08:48)
[2017-02-22] MEDS: amLODIPine BESYLATE 5 MG TAB PO SCH (08:48)
[2017-02-22] MEDS: ASPIRIN EC 81 MG TABEC PO SCH (08:48)
[2017-02-22] MEDS: OXYBUTYNIN CHLORIDE 5 MG TAB PO SCH ×3 (08:48→18:23)
--- NOTE | 2017-02-22 08:48 | HHI.DCPOC ---
Discharge Care Plan Diagnosis: (1) Osteomyelitis (2) Toe infection (3) DM (diabetes mellitus) (4) PAD (peripheral artery disease) Goals to Promote Your Health * To prevent worsening of your condition and complications * To maintain your health at the optimal level Directions to Meet Your Goals Take your medications as prescribed Follow your dietary instruction Follow activity as directed Keep your appointments as scheduled Take your immunizations and boosters as scheduled If your symptoms worsen call your PCP, if no PCP go to Urgent Care Center or Emergency Room Smoking is Dangerous to Your Health. Avoid second hand smoke Call the 24-hour hour crisis hotline for domestic abuse at Bruno Mccarthy MD Feb 22, 2017 08:48
[2017-02-22] MEDS: COLLAGENASE OINT 30 GM TUBE TOPICAL SCH (08:49)
[2017-02-22] MEDS: LISINOPRIL 5 MG TAB PO SCH (08:49)
[2017-02-22] MEDS: PARoxetine HCL 20 MG TAB PO SCH (08:49)
[2017-02-22] MEDS: CARVEDILOL 6.25 MG TAB PO SCH ×2 (08:49→21:32)
[2017-02-22] MEDS: DOCUSATE SODIUM 50 MG/SENNA 8.6 MG TAB PO SCH ×2 (08:49→21:00)
[2017-02-22] MEDS: metFORMIN HCL 500 MG TAB PO SCH ×2 (08:49→18:24)
[2017-02-22] MEDS: SODIUM CHLORIDE 0.9% FLUSH 10 ML FLUSH IV FLUSH SCH ×4 (08:50→21:32)
--- NOTE | 2017-02-22 08:56 | HHI.FF ---
Face to Face Verification Diagnosis: (1) Osteomyelitis (2) Toe infection Home Health Nursing Order: Medical education Signs/symptoms of disease process Nursing assessment with vital signs Instructions: Rocephin 2gm iv daily x 6 weeks. Needs f/u appt with ID Dr Valerie Queen. I have seen patient Lemuel Naidu on 02/22/17. My clinical findings support the need for the requested home health care services because: Injectable med education/admin I certify that my clinical findings support that this patient is homebound because: Need for psychosocial assistance Bruno Mccarthy MD Feb 22, 2017 08:56
--- NOTE | 2017-02-22 08:59 | HHI.FF ---
Infusion Therapy Location of Infusion Therapy: [facility] IV Infusion Order Patient Information Patient Weight 87 kg Diagnosis: Coded Allergies: Codeine (Verified Adverse Reaction, Severe, "NAUSEA", 02/16/17) Wellbutrin (Verified Adverse Reaction, Intermediate, ANXIETY, 02/16/17) AGITATED, PARANOIA Administer Medication Ceftriaxone 2 grams IV Start Treatment: Feb 23, 2017 Stop Treatment: Apr 05, 2017 Additional Information Venous access: PICC Line Additional Instructions [x] Peripheral flush and dressing changes per protocol [x] Implanted port and central line crewman: * Implanted port: 10 ml Normal Saline followed by 5 ml Heparin 100 units/ml Heparin flush after each use and monthly to maintain. [] May leave port accessed during therapy. [] May leave peripheral site accessed for duration of therapy. [x] If patient has SOB or respiratory distress, check oxygen saturation. If less than 90% or clinical signs of respiratory distress, administer oxygen at 2 L/min. via nasal cannula and notify physician. [x] Anaphylaxis/Reaction orders: * Stop infusion. * Keep IV line open with saline flush. * Notify physician. * Monitor vital signs every 15 minutes until symptoms resolve. * Check Oxygen saturation; Oxygen at 2 L/min. via nasal cannula if less than 90% or clinical signs of respiratory distress. * Administer diphenhydramine (Benadryl) 25 mg IV STAT, (unless patient has received as pre-med). May repeat once, if necessary. * Solu-Cortef 250 mg IVP over 30-60 seconds, use 100 mg vials for each dissolution. * Epinephrine (1mg/1 ml) 0.3 mg subcutaneously or IVP now with any signs of respiratory distress. * Check with physician for new additional pre-med orders if patient is re- challenged or re-treated. [x] May remove PICC line when treatment complete, after confirming with Physician. [x] If the patient is admitted to the hospital, the ED, or transferred via [facility] , complete transfer form including medication reconciliation order sheet. Laboratory Tests Additional Information Notify Dr Facundo Dalton with any treatment related questions and assure patient makes a follow up appt with infectious disease Dr Valerie Queen to follow the antibiotic course and toe osteomyelitis. Bruno Mccarthy MD Feb 22, 2017 08:59
[2017-02-22] MEDS: cefTRIAXone INJ 2,000 MG in SODIUM CHLORIDE 0.9% INJ 100 ML IV SCH (13:15)
--- NOTE | 2017-02-22 17:40 | PD.POD ---
Subjective Pain score: 1 Remarks Right hallux is with minimal pain, no new complaints Past Med/Surg/Social History Social History Smoking Status: Current Every Day Smoker Objective Vital Signs Vital Signs Date Time Temp Pulse Resp B/P Pulse Ox O2 Delivery O2 Flow Rate FiO2 02/22/17 16:01 89 02/22/17 15:25 99.2 77 18 127/69 98 02/22/17 15:01 80 02/22/17 14:00 84 02/22/17 13:00 84 02/22/17 12:01 84 02/22/17 11:15 98.9 82 18 105/54 96 02/22/17 11:00 80 02/22/17 10:00 80 02/22/17 09:00 86 02/22/17 08:30 98.8 87 18 159/77 96 02/22/17 08:00 90 02/22/17 07:01 77 02/22/17 04:00 88 02/22/17 04:00 98.7 88 18 130/64 97 02/22/17 02:00 86 02/22/17 00:00 81 02/22/17 00:00 99.0 81 18 128/64 96 02/21/17 22:00 86 02/21/17 20:00 99.3 86 18 152/79 98 02/21/17 20:00 86 Coded Allergies: Codeine (Verified Adverse Reaction, Severe, "NAUSEA", 02/16/17) Wellbutrin (Verified Adverse Reaction, Intermediate, ANXIETY, 02/16/17) AGITATED, PARANOIA Medications and IVs Administered Medications Medications (Trade) Dose Ordered Sig/Anna Route PRN Reason Start Time Stop Time Status Last Admin Dose Admin Sodium Chloride (NS Flush) 2 ml BID IV FLUSH 02/16/17 21:00 02/22/17 09:00 Senna/Docusate Sodium (Adriana-Colace) 1 tab BID PO 02/16/17 21:00 02/22/17 08:49 Alprazolam (Xanax) 0.5 mg BID PRN PO ANXIETY 02/16/17 18:45 02/21/17 20:46 Amlodipine Besylate (Norvasc) 5 mg DAILY PO 02/17/17 09:00 02/22/17 08:48 Aspirin (Ecotrin Ec) 81 mg DAILY PO 02/17/17 09:00 02/22/17 08:48 Carvedilol (Coreg) 6.25 mg BID PO 02/16/17 21:00 02/22/17 08:49 Clopidogrel Bisulfate (Plavix) 75 mg DAILY PO 02/17/17 09:00 02/22/17 08:48 Gemfibrozil (Lopid) 600 mg BIDAC PO 02/17/17 07:00 02/22/17 16:38 Lisinopril (Prinivil) 5 mg DAILY PO 02/17/17 09:00 02/22/17 08:49 Metformin HCl (Glucophage) 500 mg BIDPC PO 02/17/17 09:00 02/22/17 08:49 Oxybutynin Chloride (Ditropan) 5 mg TID PO 02/17/17 09:00 02/22/17 13:00 Pravastatin Sodium (Pravachol) 80 mg HS PO 02/16/17 21:00 02/21/17 20:43 Paroxetine HCl (Paxil) 30 mg DAILY PO 02/17/17 09:00 02/22/17 08:49 Sodium Chloride (NS Flush) See Protocol DAILY IV FLUSH 02/19/17 09:00 02/22/17 08:50 Heparin Sodium (Porcine) (Heparin Central Flush) See Protocol DAILY IV FLUSH 02/19/17 09:00 02/22/17 08:48 Collagenase 1 applic 1 applic DAILY TOPICAL 02/19/17 09:00 02/22/17 08:49 Ceftriaxone Sodium/Sodium Chloride (Rocephin Inj/NS Inj) 100 ml @ 200 mls/hr Q24H IV 02/20/17 14:00 02/22/17 13:15 Other Results Laboratory Tests Test 02/21/17 05:35 Erythrocyte Sedimentation Rate 70 mm/hr Laboratory Tests Test 02/22/17 04:00 Creatinine 1.02 MG/DL Estimat Glomerular Filtration 72 ML/MIN Rate Physical Exam Remarks Left foot multiple well healed digit amputations- no open lesions Right foot- serous draining distal hallux ulcer with redness, all toes pink pulses decreased sensation decreased to light touch, no crepitus with ROM Assessment & Plan A/P Right hallux ulcer with OM. Bn scan reviewed- patient would benefit most from at minimum partial hallux amputation with attempt to remove all infected bone bone from the distal phalanx. Spoke with Dr Kennedy who agrees to proceed. Will obtain deep bone cx and will label margin for path to check for OM Surgery planned for tomorrow. Risk and benefits reviewed- may need complete hallux amputation at a later date. Hector Fishman DPM Feb 22, 2017 17:40
[2017-02-22] MEDS: PRAVASTATIN SOD 80 MG TAB PO SCH (21:32)
[2017-02-22] MEDS: ALPRAZolam 0.5 MG TAB PO PRN (21:32)
[2017-02-22] MEDS ORDERED: diphenhydrAMINE HCL 25 MG CAP PO PRN (22:00)
[2017-02-23] VITALS (21 sets, daily range): BP systolic 115–158; BP diastolic 58–81; PULSE 68–90; RESP 16–20; TEMP 98.1–98.7; O2SAT 96–99
[2017-02-23] MEDS: INSULIN ASPART SUPPLEMENTAL SCALE SQ SCH ×4 (05:55→20:54)
[2017-02-23] MEDS: GEMFIBROZIL 600 MG TAB PO SCH ×2 (05:55→17:17)
--- NOTE | 2017-02-23 08:58 | HHI.PR ---
Subjective Remarks doing ok. Objective Vitals heart reg lung cta abd s/nt ext right great toe ulceration. Vital Signs Date Time Temp Pulse Resp B/P Pulse Ox O2 Delivery O2 Flow Rate FiO2 02/23/17 07:00 70 02/23/17 06:00 68 02/23/17 05:00 90 02/23/17 04:00 75 02/23/17 03:40 98.7 82 16 131/76 99 02/23/17 03:00 77 02/23/17 02:00 76 02/23/17 01:00 69 02/23/17 00:00 72 02/22/17 23:00 98.8 78 16 126/67 96 02/22/17 23:00 76 02/22/17 22:00 76 02/22/17 21:00 74 02/22/17 20:00 76 02/22/17 19:38 95 21 02/22/17 19:30 98.6 84 16 164/84 99 02/22/17 19:00 78 02/22/17 18:01 80 02/22/17 17:00 80 02/22/17 16:01 89 02/22/17 15:25 99.2 77 18 127/69 98 02/22/17 15:01 80 02/22/17 14:00 84 02/22/17 13:00 84 02/22/17 12:01 84 02/22/17 11:15 98.9 82 18 105/54 96 02/22/17 11:00 80 02/22/17 10:00 80 02/22/17 09:00 86 02/22/17 02/22/17 02/23/17 15:00 23:00 07:00 Intake Total 820 ml 540 ml Output Total 950 ml 750 ml Balance -130 ml -210 ml Intake Oral 720 ml 540 ml IV Total 100 ml 0 ml Output Urine Total 950 ml 750 ml # Voids 4 4 # Bowel Movements 1 0 Result Diagram: 02/22/17 0400 Imaging Last 24 hours Impressions Foot X-Ray 02/16/171633 Signed Impressions: Service Date/Time: January 16:43 - CONCLUSION: 1. Cortical disruption involving the distal phalanx the first digit concerning for osteomyelitis. Narendra Lopez MD Chest X-Ray 02/16/171633 Signed Impressions: Service Date/Time: January 16:45 - CONCLUSION: 1. No focal consolidation. Blunting of the right costophrenic angle may represent a small effusion or scarring. Previous median sternotomy. Arnie Veliz MD A/P Problem List: (1) Toe infection Status: Acute Plan: - Pt is a 71 y/o male with diabetes, HTN, CAD with previous CABG, and PAD s/p left femoral bypass in 2015 - He presented with complaints of right great toe infection which has been going on since August 2016. - He has been following with podiatry as an outpt and they referred the pt to the ED because they felt he may have osteomyelitis. - He admits to drainage from the wound, but denies any fever or chills. - He has had previous amputations and all of the digits of his left foot are removed. - Foot Xray --> Cortical disruption involving the distal phalanx the first digit concerning for osteomyelitis. - Zosyn and vanco stopped 02/20 - rocephin started 02/20 - CTA with runoff (02/17/17) --> results noted - [facility]ADLEY (02/17/17) - Case d/w Dr. Nye (02/18/17) - Pt does NOT want amputation at this time - Case d/w pt's Vascular Surgeon (02/18/17) - SFA atherectomy 02/21/17 - wound cx results noted. mssa/group b strep/ providencia. - Discussed with pt/Dr Kennedy/Dr Fishman....Pt now agreeable to distal hallux amputation today. will discuss abx with ID. (2) Osteomyelitis Status: Acute Plan: - See above. (3) UTI (urinary tract infection) Status: Acute Plan: - UA was abnormal - urine cx shows < 10 CFU Problem Qualifiers (1) UTI (urinary tract infection): Qualified Code: N30.01 - Acute cystitis with hematuria Bruno Mccarthy MD Feb 23, 2017 08:58
[2017-02-23] MEDS: ASPIRIN EC 81 MG TABEC PO SCH ×3 (09:00→12:44)
[2017-02-23] MEDS: SODIUM CHLORIDE 0.9% FLUSH 10 ML FLUSH IV FLUSH SCH ×3 (09:00→20:47)
[2017-02-23] MEDS: metFORMIN HCL 500 MG TAB PO SCH ×2 (09:00→17:17)
[2017-02-23] MEDS: DOCUSATE SODIUM 50 MG/SENNA 8.6 MG TAB PO SCH ×2 (09:00→20:47)
[2017-02-23] MEDS: CARVEDILOL 6.25 MG TAB PO SCH ×2 (09:33→20:47)
[2017-02-23] MEDS: amLODIPine BESYLATE 5 MG TAB PO SCH (09:35)
[2017-02-23] MEDS: PARoxetine HCL 20 MG TAB PO SCH (09:35)
[2017-02-23] MEDS: LISINOPRIL 5 MG TAB PO SCH (09:35)
[2017-02-23] MEDS: CLOPIDOGREL 75 MG TAB PO SCH (09:36)
[2017-02-23] MEDS: COLLAGENASE OINT 30 GM TUBE TOPICAL SCH (09:38)
[2017-02-23] MEDS: OXYBUTYNIN CHLORIDE 5 MG TAB PO SCH ×3 (09:38→17:17)
[2017-02-23] MEDS ORDERED: ONDANSETRON HCL 4 MG/2 ML VIAL IV PUSH ONE (12:00)
[2017-02-23] MEDS ORDERED: PROPOFOL 200 MG/20 ML AMP IV ONE (12:00)
[2017-02-23] MEDS ORDERED: ePHEDrine/NS 25 MG/5 ML SYR IV ONE (12:00)
[2017-02-23] MEDS ORDERED: PHENYLEPH/NS 1000 MCG/10 ML SYR IV ONE (12:00)
[2017-02-23] MEDS: cefTRIAXone INJ 2,000 MG in SODIUM CHLORIDE 0.9% INJ 100 ML IV SCH (13:27)
[2017-02-23] MEDS ORDERED: BUPIVACAINE HCL PF 0.5% 30 ML VIAL ONE (14:40)
[2017-02-23] MEDS ORDERED: BUPIVACAINE HCL PF 0.25% 30 ML VIAL ONE (14:40)
[2017-02-23] MEDS ORDERED: ACETAMINOPHEN 1000 MG/100 ML VIAL IV ONE (14:48)
[2017-02-23] MEDS ORDERED: FAMOTIDINE 20 MG/2 ML VIAL ONE (14:48)
[2017-02-23] MEDS ORDERED: NEOMYCIN/POLYMYXIN 1 ML G.U. IRRIGANT TOPICAL ONE (15:19)
--- NOTE | 2017-02-23 15:40 | HHI.PR ---
Immediate Post Op Note Procedure Date: Feb 23, 2017 Pre Op Diagnosis: right hallux ulcer OM Post Op Diagnosis: same Surgeon: Hector Goins Milk Powder Grinder(s): Scrub Procedure: Right hallux partial amputation Findings: see op dictation Additional Information: ok to DC in AM Complications: none Specimen(s) removed: bone for path to check for clear margin, bone cx at margin for C and S Estimated blood loss: less than 30 mL Anesthesia: General, Local Drains: None Fluids: see anesthesia IVF Tourniquet time (min at mmHg) none Patient to: Other Patient Condition: Good Implant/Devices: SEE IMPLANT LOG (if applicable) Date/Time of Procedure: SEE SURGICAL CARE RECORD Hector Goins DPM Feb 23, 2017 15:40
--- NOTE | 2017-02-23 15:47 | HHI.FF ---
Face to Face Verification Diagnosis: (1) Toe infection (2) Osteomyelitis Physical Therapy Order: Evaluate and Treat Instructions: Woundcare everyother day NS and 4x4 and sandra wrap Home Health Nursing Order: Medical education Wound care and dressing changes Home Health Aide Order: To Assist In: Bathing and personal care I have seen patient Lemuel Naidu on 02/23/17. My clinical findings support the need for the requested home health care services because: Ltd mobility - disease progression Infection w/ risk of complications I certify that my clinical findings support that this patient is homebound because: Post-op weakness Unsteady gait/balance Unsafe to leave home unassisted Hector Fishman DPM Feb 23, 2017 15:47
[2017-02-23] MEDS ORDERED: MIDAZOLAM HCL 2 MG/2 ML VIAL ONE (16:09)
[2017-02-23] MEDS ORDERED: fentaNYL CITRATE 250 MCG/5 ML AMP ONE (16:09)
--- NOTE | 2017-02-23 16:35 | HHI.IDPN ---
Note Infectious Disease Note ID follow up. Patient changed his mind about surgery and went to surgery for R hallux. Seen post op. partial amputation of R. hallux. Feels "woozy". No distress. Afebrile. No chills. PAST MEDICAL HISTORY 1. Diabetes mellitus. 2. Diabetic neuropathy. 3. Coronary artery disease. 4. Coronary artery bypass graft surgery. 5. Hyperlipidemia. 6. History of kidney stone. 7. Empyema of the lung in . 8. Amputation of toes two through five on the left foot. ALLERGIES WELLBUTRIN AND CODEINE. ANTIBIOTICS: Ceftriaxone. OBJECTIVE: Vital Signs Date Time Temp Pulse Resp B/P Pulse Ox O2 Delivery O2 Flow Rate FiO2 02/23/17 14:00 74 02/23/17 13:00 76 02/23/17 12:00 74 02/23/17 11:48 98.3 80 16 124/78 99 02/23/17 11:00 71 02/23/17 10:00 72 02/23/17 09:00 74 02/23/17 08:00 98.3 80 16 158/81 99 02/23/17 08:00 72 02/23/17 07:00 70 02/23/17 06:00 68 02/23/17 05:00 90 02/23/17 04:00 75 02/23/17 03:40 98.7 82 16 131/76 99 02/23/17 03:00 77 02/23/17 02:00 76 02/23/17 01:00 69 02/23/17 00:00 72 02/22/17 23:00 98.8 78 16 126/67 96 02/22/17 23:00 76 02/22/17 22:00 76 02/22/17 21:00 74 02/22/17 20:00 76 02/22/17 19:38 95 21 02/22/17 19:30 98.6 84 16 164/84 99 02/22/17 19:00 78 02/22/17 18:01 80 02/22/17 17:00 80 Laboratory Tests Test 02/22/17 04:00 Creatinine 1.02 MG/DL Estimat Glomerular Filtration 72 ML/MIN Rate PHYSICAL EXAMINATION GENERAL: No acute distress. He is awake and alert and oriented. HEENT: Extraocular movements grossly intact. Pupils reactive to light. No icterus. Oropharynx moist mucosa without lesions. NECK: Supple without adenopathy. LUNGS: Clear breath sounds. HEART: Regular rate and rhythm without murmurs, rubs or gallops. ABDOMEN: Bowel sounds present, soft, nontender. EXTREMITIES: R foot has surgical dressing post surgery. NEURO: Nonfocal. PSYCHE: The patient is calm and cooperative. IMPRESSION 1. Osteomyelitis of the right great toe. 2. Diabetic wound infection due to group B strep, Providencia and staph aureus. 3. Post op from partial amputation of the R. hallux. RECOMMENDATIONS Discontinue Ceftriaxone. Now that he is post resection of the area of infection the antibiotics can be discontinued. No need for additional antibiotics. Ryne Dumont MD Feb 23, 2017 16:35
[2017-02-23] MEDS ORDERED: DO NOT ADM ANY ANTICOAGULANT DRUGS PRN (16:45)
[2017-02-23] MEDS: PRAVASTATIN SOD 80 MG TAB PO SCH (20:47)
[2017-02-23] MEDS: ALPRAZolam 0.5 MG TAB PO PRN (20:49)
--- NOTE | 2017-02-24 13:12 | HHI.DS ---
Discharge Summary Admission Date Feb 16, 2017 at 18:14 Discharge Date: Feb 23, 2017 Admitting Diagnosis right great toe infection (1) Toe infection Diagnosis: Principal (2) Osteomyelitis Diagnosis: Principal (3) PAD (peripheral artery disease) Diagnosis: Principal (4) DM (diabetes mellitus) Diagnosis: Secondary Brief History 71-year-old male with multiple medical problems including diabetes, hypertension , hyperlipidemia, CAD, history of CABG, PAD, femoral bypass in the past, history of nephrolithiasis here with complaints of right great toe infection. Patient states that he has had infection of his right great toe since August of this year. He has been following up with podiatry and was recommended come to the emergency department on Monday of this week. Patient tells me that he did not want to come and has been trying to take care of this at home. He did have an appointment with podiatry today and was sent straight to the emergency room. Button Buttonhole Marker felt patient may have osteomyelitis and was sent for further evaluation. Patient reports right great toe infection and pain rated as 6/10 without any further radiation. He admits to drainage from the wound, but denies any fever or chills. He has had previous amputations and all of the digits of his left foot are removed. Xrays suggest probable osteomyelitis rt great toe and will be started on antibiotics and consult to podiatry may need surgery. CBC/BMP: 02/22/17 0400 Significant Findings Laboratory Tests Test 02/22/17 04:00 Estimat Glomerular Filtration 72 ML/MIN (>89) Rate Hospital Course - Pt is a 71 y/o male with diabetes, HTN, CAD with previous CABG, and PAD s/p left femoral bypass in 2015 - He presented with complaints of right great toe infection which has been going on since August 2016. - He has been following with podiatry as an outpt and they referred the pt to the ED because they felt he may have osteomyelitis. - He admits to drainage from the wound, but denies any fever or chills. - He has had previous amputations and all of the digits of his left foot are removed. - Foot Xray --> Cortical disruption involving the distal phalanx the first digit concerning for osteomyelitis. - Zosyn and vanco stopped 02/20 - rocephin started 02/20 - CTA with runoff (02/17/17) --> results noted - BRADLEY (02/17/17) - Case d/w Dr. Nye (02/18/17) - Pt does NOT want amputation at this time - Case d/w pt's Vascular Surgeon (02/18/17) - Pt was taken to operating room on 02/21 for SFA atherectomy. - wound cx results noted. mssa/group b strep/ providencia. - Discussed with pt/Dr John/Dr Fishman....Pt now agreeable to distal hallux amputation. After procedure it was not clear per podiatry if clear margin was obtained and so the agreement was the patient would continue the rocephin for next week and f/u with Dr Fishman in office to determine if abx could be stopped. Pt Condition on Discharge: Stable Discharge Disposition: Disch w/ Home Health Serv Discharge Instructions DIET: Follow Instructions for: Diabetic Diet Activities you can perform: Regular-No Restrictions Follow up Referrals: Infectious Disease - 03/04/17 with mariaelena Queen PCP Follow-up - 1 Week with ashok ferguson Podiatry - 03/01/17 with Hector Fishman DPiRc Vascular Surgery - [address]ohn Continued Medications: Alprazolam (Alprazolam) 0.5 Mg Tab 0.5 MG PO BID PRN ANXIETY Ref 0 TAB Amlodipine (Amlodipine) 5 Mg Tab 5 MG PO DAILY Blood Pressure Management #[address] (Aspirin EC) 81 Mg Tabdr 81 MG PO DAILY Ref 0 TAB Carvedilol (Carvedilol) 6.25 Mg Tab 6.25 MG PO BID #60 Ref 0 TAB Cholecalciferol (Vitamin D) 1,000 Unit Tab 84243 UNITS PO WEEKLY Nutritional Supplement #1 Ref 0 BOTTLE Clopidogrel (Plavix) 75 Mg Tab 75 MG PO DAILY Blood Clot Prevention #30 Ref 0 TAB Gemfibrozil (Gemfibrozil) 600 Mg Tab 600 MG PO BIDAC Take 30 minutes prior to breakfast and dinner. #60 Ref 0 TAB Insulin Aspart Inj (Novolog Inj) 1,000 Unit/10 Ml Vial 0 SQ DIRECTED Sliding Scale as directed. Blood Sugar Management #10 Ref 0 ML Insulin Degludec Inj (Tresiba Flextouch Pen Inj) 300 unit/3 ML Pen 70 UNITS SQ HS Blood Sugar Management #15 Ref 0 ML Lisinopril (Lisinopril) 5 Mg Tab 5 MG PO DAILY Blood Pressure Management #30 Ref 0 TAB Metformin (Metformin) 500 Mg Tab 500 MG PO BIDPC With meals Blood Sugar Management #60 Ref 0 TAB Oxybutynin (Ditropan) 5 Mg Tab 5 MG PO TID Urinary Symptom Managemen #90 Ref 0 TAB Paroxetine (Paroxetine) 30 Mg Tab 30 MG PO DAILY #30 Ref 0 TAB Pravastatin (Pravastatin) 80 Mg Tab 80 MG PO HS Cholesterol Management #30 Ref 0 TAB Bruno Mccarthy MD Feb 24, 2017 13:12
--- NOTE | 2017-02-24 20:52 | MP ---
cc: TORIN GILBERT DPM DATE OF SURGERY 02/23/17 PREOPERATIVE DIAGNOSIS Right hallux ulcer with osteomyelitis. POSTOPERATIVE DIAGNOSIS Right hallux ulcer with osteomyelitis. PROCEDURE PERFORMED Right hallux partial amputation. COMPLICATIONS None. SPECIMEN Bone for pathology to check for clear margin of the distal phalanx, bone culture at the surgical margin for C&S. ESTIMATED BLOOD LOSS Less than 30 ml. ANESTHESIA General with local, 6 cc of 0.25% Marcaine plain. JUSTIFICATION FOR PROCEDURE This is a pleasant 71-year-old male who was diagnosed with osteomyelitis via bone scan. He had a revascularization per Dr. Kennedy. We devised a plan to move forward with surgical partial amputation of the hallux. He was resistant to a full hallux amputation. The risks and benefits explained including but not limited to poor healing, need for long-term IV antibiotics, possible need for hallux amputation at a later date. PROCEDURE IN DETAIL Under mild sedation the patient is brought to the operating room, placed on the operative table in the supine position. Following the induction of general anesthesia, the right lower extremity was scrubbed, prepped and draped in the usual aseptic fashion. The foot was elevated and examined. There is noted to be a full-thickness ulcer of the distal aspect of the patient's hallux probed to bone. A fish mouth type elliptical incision removed the ulcer and this was down to the distal phalanx. The distal phalanx was noted to be soft with clinical signs of osteomyelitis. A subperiosteal dissection took place down to the base of the distal phalanx utilizing power instrumentation. The distal phalanx was then removed back to the base. This appeared to be clear clinically from osteomyelitis. The margin was inked and sent for pathological analysis, a wound culture taken at this bone specimen site. The wound was flushed with copious amounts of normal saline. Simple interrupted nylon suture took place recoapting the wound edges. There was noted to be punctate bleeding at the surgical site, slightly decreased circulation noted, however, possibly adequate to heal. A bulky bandage placed. The patient transferred from OR to PACU with all vital signs stable. The patient is likely clear to followup outpatient. My only concern is I am not 100% certain all of the infected bone has been removed. My recommendation is a minimum 2 weeks of IV antibiotics and possibly longer pending the pathology report. I will discuss the findings with medicine. RASHAD Andrea /3:44 PM /8:46 PM
--- NOTE | 2017-03-31 22:49 | MP ---
cc: JAZMINE KENNEDYVICTORINOEliseo DPM DATE OF SURGERY 02/21/17 PREOPERATIVE DIAGNOSIS Non-healing neurotrophic ulceration with acute inflammation right great toe status post left femoral-popliteal bypass October 06, 2015 PROCEDURE 1. Aortofemoral arteriogram with left femoral access. 2. Right anterior tibial atherectomy/PTDA. SURGEON Fina Kennedy MD ANESTHESIA Local MAC DESCRIPTION OF PROCEDURE With the patient in the supine position and under IV sedation, the lower abdomen, both groins and thighs were prepped with Betadine and draped in a sterile fashion. Appropriate IV antibiotic prophylaxis was administered and, following a protocol time-out, the skin and subcutaneous tissue surrounding the proposed left common femoral access site preemptively infiltrated with 0.5% Marcaine with epinephrine. Utilizing ultrasound guidance, an 18 gauge needle was inserted into the left mid common femoral lumen and a J-wire advanced under fluoroscopic guidance into the left external iliac artery. A 5-Portuguese hemostatic sheath was deployed over the J-wire. An advantage guidewire Omni catheter combination was navigated into the subrenal aorta. Diluted contrast was injected in conjunction with digital C-arm fluoroscopic imaging with findings as follows: The distal aorta, both common and external iliac arteries were widely patent. On the left side an in situ vein graft to common femoral anastomosis was widely patent and flow through the profunda and the in situ vein graft was uninterrupted. The popliteal anastomosis was also widely patent with unrestricted flow into the proximal tibial arteries. On the right side, the profunda and proximal SFA were widely patent. Beginning within the mid and distal SFA, calcific atherosclerotic plaque produced diffuse, 30-40% stenosis throughout but did not appear to be flow-limiting. The distal SFA and above-knee popliteal were slightly aneurysmal, somewhat ectatic throughout. The below-knee popliteal was patent. The posterior tibial was occluded throughout its entire course. The peroneal appeared to be dominant but occluded just above the ankle level. The anterior tibial exhibited multiple segmental stenoses throughout its entire course and occluded at the ankle level. The advantage guidewire Omni catheter combination was guided into the right common femoral artery. A 45 cm 6-Portuguese sheath was guided over the advantage wire and parked within the proximal common femoral lumen. The patient was systemically heparinized with 5000 units. A PT Choice 0.18 Quick cross catheter combination was carefully negotiated into the proximal anterior tibial and the combination guided under fluoroscopic guidance into the distal anterior tibial. The wire was negotiated across the distal anterior tibial occlusion into the proximal dorsalis pedis. The PT choice wire was exchanged for a Viper wire. Orbital atherectomy of the anterior tibial with a 1.25 micro CSI crown was accomplished at 60 and 90,000 RPM followed by gentle balloon dilatation of the entire length of the anterior tibial with a 2.5 mm balloon inflated to 8 atmospheres. Completion angiogram revealed wide patency of the anterior tibial with resolution of the multiple segmental stenoses and ankle occlusion. Uninterrupted flow occurred throughout the anterior tibial into the dorsalis pedis. The peroneal remained unchanged. The long 6-Portuguese sheath was exchanged for a short 6-Portuguese sheath which was secured with a skin suture of 4-0 nylon. There were no operative complications. The patient returned to recovery in stable condition having tolerated procedure well. MD WOLFGANG Gramajo/ /4:29 PM /10:33 PM
== END 2017-02-23 21:21 | disposition home health service (06) | DRG 617 ==
LOC: NEPC 15:39 → NEDA 18:14 → N05A 21:05 → HCIS 02-21 12:41 → HCIN 02-21 14:39 → HCIS 02-23 15:03
PROVIDERS: ADMIT Hospitalist; ATTEND Hospitalist
PROC: 047P3ZZ Dilation of Right Anterior Tibial Artery, Percutaneous Approach (ICD-10-PCS; 2017-02-21)
PROC: B40D1ZZ Plain Radiography of Aorta and Bilateral Lower Extremity Arteries using Low Osmolar Contrast (ICD-10-PCS; 2017-02-21)
PROC: 04CP3ZZ Extirpation of Matter from Right Anterior Tibial Artery, Percutaneous Approach (ICD-10-PCS; 2017-02-21 10:10)
PROC: 0Y6P0Z3 Detachment at Right 1st Toe, Low, Open Approach (ICD-10-PCS; principal; 2017-02-23 14:55)
DX: E11.69 Type 2 diabetes mellitus with other specified complication (principal); N30.01 Acute cystitis with hematuria; E11.40 Type 2 diabetes mellitus with diabetic neuropathy, unspecified; M86.171 Other acute osteomyelitis, right ankle and foot; E11.51 Type 2 diabetes mellitus with diabetic peripheral angiopathy without gangrene; E11.621 Type 2 diabetes mellitus with foot ulcer; I10 Essential (primary) hypertension; E78.5 Hyperlipidemia, unspecified; B95.61 Methicillin susceptible Staphylococcus aureus infection as the cause of diseases classified elsewhere; B95.1 Streptococcus, group B, as the cause of diseases classified elsewhere; F41.9 Anxiety disorder, unspecified; F32.9 Major depressive disorder, single episode, unspecified; L03.031 Cellulitis of right toe; L97.519 Non-pressure chronic ulcer of other part of right foot with unspecified severity; F17.290 Nicotine dependence, other tobacco product, uncomplicated; I25.10 Atherosclerotic heart disease of native coronary artery without angina pectoris; Z95.1 Presence of aortocoronary bypass graft; Z95.820 Peripheral vascular angioplasty status with implants and grafts; Z79.01 Long term (current) use of anticoagulants; Z79.82 Long term (current) use of aspirin; Z79.84 Long term (current) use of oral hypoglycemic drugs; Z79.4 Long term (current) use of insulin; I25.2 Old myocardial infarction; Z87.442 Personal history of urinary calculi
CPT/HCPCS: 36569; 71010; 73630; 75635; 75710; 76937; 78807; 78999; 80048; 80053; 80202; 81001; 82565; 82948; 83605; 83735; 85025; 85610; 85652; 85730; 86403; 87015; 87040; 87070; 87077; 87086; 87102; 87116; 87147; 87186; 87205; 87206; 88305; 88311; 93923; 96374; A9569; C1725; C1769; J0131; J0696; J1642; J1644; J1815; J2250; J2370; J2405; J2543; J2720; J3010; J3370; J7030; J7040; J7050; J7120; L3260; Q9967

== ENCOUNTER 2017-08-10 06:04 | Day surgery (SDC) | payer MEDICARE ==
[~2017-08-10] VITALS: Ht 170.2 cm; Wt 84.0 kg
[2017-08-10] VITALS (11 sets, daily range): BP systolic 105–150; BP diastolic 56–66; PULSE 67–86; RESP 17–19; TEMP 97.5–98.2; O2SAT 93–98
[~2017-08-10 06:04] MED LIST changes: -AMOX125C CHEW; -ASPI81TA11 PO; +ASPI81TA23 PO; -OXYB5TAB10 PO; +OXYB5TAB8 PO; +VITA100064 PO
[2017-08-10] MEDS ORDERED: Hold AM Insulin & AM Hypoglycemic medications in diabetic patients PRN (07:00)
[2017-08-10] MEDS ORDERED: NO Heparin, Lovenox, Coumadin at least 12 hours prior to procedure. PRN (07:00)
[2017-08-10] MEDS ORDERED: CHLORHEXIDINE GLUCONATE 2 % 1 PACK (2 CLOTHS) TOPICAL SCH (07:00)
[2017-08-10] MEDS ORDERED: METOPROLOL TARTRATE 25 MG TAB PO PRN (07:00)
[2017-08-10] MEDS: NS 1000 ML IV SCH (07:00)
[2017-08-10] MEDS ORDERED: MUPIROCIN 2% OINT 1 APPLIC/GM SYR NASAL SCH (07:00)
[2017-08-10] MEDS ORDERED: CHLORHEXIDINE GLUCONATE 2 % 1 PACK (2 CLOTHS) TOPICAL PRN (07:00)
[2017-08-10] MEDS ORDERED: LORazepam 1 MG TAB SL SCH ×2 (07:00→07:15)
[2017-08-10] MEDS ORDERED: POVIDONE IODINE 5% (ANTISEPSIS KIT) 4 APPLICATIONS EACH NARE SCH (07:00)
[2017-08-10] MEDS ORDERED: ceFAZolin 2 GM PREMIX 50 ML IV SCH (07:00)
[2017-08-10] MEDS ORDERED: SODIUM CHLORID 0.9% 500 ML IV PRN (07:00)
[2017-08-10] MEDS ORDERED: LACTATED RINGER'S 1000 ML IV PRN (07:00)
[2017-08-10] MEDS ORDERED: VANCOMYCIN 1000 MG/NS 250 ML IV SCH ×2 (07:00)
[2017-08-10] MEDS ORDERED: POVIDONE IODINE 5% (ANTISEPSIS KIT) 4 APPLICATIONS EACH NARE PRN (07:00)
[2017-08-10] MEDS: SODIUM CHLORID 0.9% 500 ML INJ 500 ML IV SCH ×2 (07:15→23:55)
[2017-08-10 07:18] LABS: AUTOMATED NEUTROPHIL # 5.4 TH/MM3 (1.8-7.7); BASOPHIL % 0.4 % (0.0-2.0); EOSINOPHIL # 0.2 TH/MM3 (0-0.4); EOSINOPHIL % 2.9 % (0.0-4.0); HEMATOCRIT 34.8 % (39.0-51.0); HEMOGLOBIN 12.1 GM/DL (13.0-17.0); LYMPH % 21.4 % (9.0-44.0); LYMPHOCYTE # 1.7 TH/MM3 (1.0-4.8); MEAN CELL VOLUME 92.6 FL (80.0-100.0); MEAN CORPUSCULAR HEMOGLOBIN 32.2 PG (27.0-34.0); MEAN CORPUSCULAR HGB CONC 34.8 % (32.0-36.0); MEAN PLATELET VOLUME 7.1 FL (7.0-11.0); MONO % 8.8 % (0.0-8.0); MONOCYTE # 0.7 TH/MM3 (0-0.9); NEUT % 66.5 % (16.0-70.0); PLATELET COUNT 328 TH/MM3 (150-450); RED BLOOD COUNT 3.75 MIL/MM3 (4.50-5.90); RED CELL DISTRIBUTION WIDTH 13.6 % (11.6-17.2); WHITE BLOOD COUNT 8.1 TH/MM3 (4.0-11.0)
[2017-08-10 07:24] LABS: INTERNATIONAL NORMALIZED RATIO 1.1 RATIO
[2017-08-10 07:35] LABS: BICARBONATE 28.3 MEQ/L (21.0-32.0); CALCIUM 9.4 MG/DL (8.5-10.1); CREATININE 1.39 MG/DL (0.60-1.30)
[2017-08-10] MEDS ORDERED: POTA1TAB4 PO (07:39)
[2017-08-10] MEDS ORDERED: LISI10TA3 PO (07:39)
[2017-08-10] MEDS ORDERED: METF500T PO (07:39)
[2017-08-10] MEDS ORDERED: FURO40TA PO (07:39)
[2017-08-10] MEDS ORDERED: INSU1INJ14 SQ (07:42)
[2017-08-10] MEDS ORDERED: ISOPROTERENOL HCL 1 MG/5 ML AMP ONE (08:24)
[2017-08-10] MEDS ORDERED: VANCOMYCIN 500 MG VIAL ONE (08:34)
[2017-08-10] MEDS ORDERED: LIDOCAINE HCL 2% 50 ML VIAL ONE (08:34)
--- NOTE | 2017-08-10 08:40 | CATHPROC ---
[facility] HIS Report Study Information Study Number Admission Scheduled Start Study Start [id number] Aug 10 2017 6:04AM 08/10/2017 Aug 10 2017 7:01AM [facility] Electrophysiology Study Admit Source Facility Department Other [facility] - Diesel Engine Specialist Physician and Clinical Staff Initial Gita Gorman Lift Truck Operator Luba Saul,RT(R) TECH2 Other Anesthesia, MERCHANDISE PLANNER Recorder Lisa Lau,KENNY Scrub Eyad Song,RT(R) Equipment Time Immigration Manager Description Size Mfg Part Number Used/Scraped [id number] 07:02 MEDLINE INDUSTRIES PACK, CCL CUSTOM * Used *[id number] 07:02 MEDLINE PACER ELLIS, LIMB * 2530 *[id number] Used [id number] 07:02 [employer] MEDICAL BLANKET,WARM AIR CCL * Used *[id number] 07:02 [employer] M[employer]IE MEDICAL CATHETER, JSN, QUAD FR 5 Used *[id number] 07:02 [employer] MANNIE MEDICAL CATHETER, JSN, QUAD FR 5 Used *[id number] 07:02 [employer] MANNIE MEDICAL CATHETER, JSN, QUAD FR 5 Used *[id number] 07:02 [employer] MANNIE MEDICAL CATHETER, JSN, QUAD FR 5 Used *[id number] 07:03 ST. MANNIE MEDICAL SHEATH, EPS, FR5 FAST CATH FR 5 Used *[id number] 07:03 [employer] MANNIE MEDICAL SHEATH, EPS, FR5 FAST CATH FR 5 Used *[id number] 07:03 [employer] MANNIE MEDICAL SHEATH, EPS, FR5 FAST CATH FR 5 Used *[id number] 07:03 [employer] MANNIE MEDICAL SHEATH, EPS, FR6 FAST CATH FR 6 Used *[id number] History: Allergies Allergy Reaction codeine "NAUSEA" Wellbutrin ANXIETY bupropion ANXIETY History: Risk Factors Hypertension Dyslipidemia Previous MS Yes Yes Yes Prior CABG Yes Peripheral Artery Diabetes Diabetes Therapy Disease Yes Yes Insulin Labs Hgb (g/dl) Hct (%) RBC (MIL/MM3) WBC (l/cumm) Platelets (thousands) 11.60-17.00 35.00-51.00 4.00-5.90 4.00-11.00 150.00-450.00 12.0 34 3.7 8.1 328 Glucose (mg/dl) BUN (mg/dl) Creatinine (mg/dl) BUN:Creatinine (1:x) 74.00-106.00 7.00-18.00 0.50-1.30 10.00-20.00 187 25 1.4 17.9 Na (meq/l) K (meq/l) 136.00-145.00 3.50-5.10 138 4.4 INR (PTT:PT) 0.90-1.10 1.1 Medication Medication Total Dose (Bolus/Oral) Medication Total Dosage/Unit 1% XYLOCAINE 20 mL Medications (Bolus/Oral) Medication Time Given Dosage/Unit Administered By Reason 1% XYLOCAINE 08/10/2017 8:06:44 AM 20 mL Gita Giles 20 mL 1% XYLOCAINE given in lab by Gita Giles in Right Groin via Subcutaneous. Medication (Drip) Medication Time Given Dosage/Unit Concentration/Unit Diluent (ml) Solution ISUPREL 08/10/2017 8:27:00 AM 4 mcg/min 1 mg 250 NaCl .9 4 mcg/min ISUPREL given in lab by Tanisha, MERCHANDISE PLANNER via Peripheral IV. Pump/Drip Flow = 60 ml/hr using NaCl .9 with a concentration of 1 mg in 250 ml. Ordered by Gita Giles. Reason: As per physicians verbal order. Initial Case Assessment Cardiovascular HR Rhythm NIBP Chest Pain 66 sr 136/64 0 Edema Present Skin color Skin None Normal Warm Dry Circulatory - Right Pulses Dorsalis Pedis Radial 1 2 Scale (0,1,2,3,4,d) Circulatory - Left Pulses Dorsalis Pedis Radial 1 2 Scale (0,1,2,3,4,d) Circulatory - Lower Extremities Color Lower Right Color Lower Left Normal Normal Neurological State Oriented to time-place- Alert Moves all extremities person Respiration - General Respiration Rate SpO2 (%) (B/min) 20 95 Chronological Log Time Study Chronological Log 7:31:38 Patient arrived via Bed. 7:31:41 Patient Name, D.O.B, / Armband Verified By R.N. 7:31:42 Consent signed by the physician and the patient and verified by the Diesel Engine Specialist staff. 7:31:43 Pre-op and post- op instructions given; patient acknowledges understanding of instructions. 7:31:43 Verbal Stimulation=2 Physical Stimulation=2 Airway=2 Respiration=2 TOTAL=8. (0=absent, 1=li mited, 2=present) 7:31:45 Anesthesia at bedside. Assumes care of patient. Deon 7:32:50 Patient has been NPO for More than 6Hrs. 7:32:51 Skin Breakdown- 7:32:52 Patient Warmer Placed on the Table. 7:32:52 Disposable Defibrillator Pads Placed On Patient. 7:32:54 Louis Prominences Protected 7:32:55 A # 20 IV was noted in the Antecubital (left). Grade = 0 0.9ns kvo 7:32:56 A # 20 IV was noted in the Antecubital (right). Grade = 0 0.9 ns kvo 7:32:57 History and physical on the chart or being dictated. Assessment: Initial Case, HR=66 BPM, Rhythm=sr, JKCA=378/64 mmhg, Chest Pain=0, Edema=None, [place] r=Normal, Skin = Warm, Dry Right Pulses: Yuniel Ped=1, Radial=2 Left Pulses: Yuniel Ped=1, Radial=2 7:43:10 Lower Right Extremities: Color=Normal Lower Left Extremities: Color=Normal Neurological: State=Alert, Ox3, IRVIN Respiration: Resp=20 B/min, SpO2=95 % 7:50:23 Condom cath applied per pt request. 7:51:38 Table restraints applied according to hospital policy 7:52:03 Bilateral groins prepped with 2% chlorhexidine, and draped after a 3 minute waiting time. 8:03:00 MD arrived. Time Out. Correct patient, procedure, procedure equipment, site and side verified with physician present. Time 8:06:10 concurred by MD, individual staff and MERCHANDISE PLANNER. Time Out #2 - Consents verified, patient in correct position, all results are labled and display ed, safety precautions 8:06:25 taken, antibiotics administered. Time out concurred by MD, individual staff and MERCHANDISE PLANNER in procedur e 8:06:42 Case Start 8:06:44 20 mL 1% XYLOCAINE given in lab by Gita Giles in Right Groin via Subcutaneous. 8:07:09 Vascular access was obtained in the Fem Vein (right). 8:07:12 Vascular access was obtained in the Fem Vein (right). 8:07:17 Vascular access was obtained in the Fem Vein (right). 8:07:21 Vascular access was obtained in the Fem Vein (right). 8:07:35 A SHEATH, EPS, FR5 FAST CATH FR 5 was advanced into the Fem Vein (right) using the Modified Seldinger technique. 8:07:43 A SHEATH, EPS, FR5 FAST CATH FR 5 was advanced into the Fem Vein (right) using the Modified Seldinger technique. 8:07:46 A SHEATH, EPS, FR5 FAST CATH FR 5 was advanced into the Fem Vein (right) using the Modified Seldinger technique. 8:07:50 A SHEATH, EPS, FR6 FAST CATH FR 6 was advanced into the Fem Vein (right) using the Modified Seldinger technique. A CATHETER, JSN, QUAD FR 5 was advanced vis Fem Vein (right) and placed in the CS. Placement was visually 8:09:53 confirmed under fluoroscopy. A CATHETER, JSN, QUAD FR 5 was advanced vis Fem Vein (right) and placed in the HIS. Placement wa s visually 8:10:02 confirmed under fluoroscopy. A CATHETER, JSN, QUAD FR 5 was advanced vis Fem Vein (right) and placed in the HRA. Placement wa s visually 8:11:35 confirmed under fluoroscopy. 8:13:18 EPS in progress. 4 mcg/min ISUPREL given in lab by Anesthesia, MERCHANDISE PLANNER via Peripheral IV. Pump/Drip Flow = 60 ml/hr using NaCl .9 with 8:27:00 a concentration of 1 mg in 250 ml. Ordered by Gita Giles. Reason: As per physicians verbal or shahbaz. 8:37:29 Isuprel off 8:38:43 All Catheter(s) removed without difficulty 8:39:51 Sheath(s) left in place, secured, 0.9ns kvo connected and will be removed in Holding Area 8:40:30 Case End 8:40:34 No case complications noted. 8:40:40 Cine recording checked. 8:40:50 NOTE: This patient is undergoing an additional procedure while still in the Cardiac Diesel Engine Specialist . 9:22:19 EP Procedure was performed. EPS End Study - Contrast Media Used In Study Contrast Total Opened (mL) Total Used (mL) Total Wasted (mL) Unspecified 0 0 0 End Study - Maximum Contrast Load Max Contrast Load (mL) 301.8 End Study - Radiation Exposure Fluoro Time (minutes) 0.5 End Study - Patient Disposition Complications Transferred To Interventional Outcome No Diesel Engine Specialist Holding successful
--- NOTE | 2017-08-10 09:08 | MA ---
cc: ALICIA STEINER M.D. DATE 08/10/2017 PROCEDURE PERFORMED Electrophysiology study, CS cannulation, repeat electrophysiology study on Isuprel infusion. INDICATIONS Mr. Naidu is a 71-year-old gentleman with coronary artery disease, cardiomyopathy, ejection around 27% on optimal medical treatment who will undergo electrophysiology study and device insertion. The risks, the nature and the benefit of the procedure are clearly stated to him. The risks include pneumothorax, cardiac perforation, stroke, need for open heart surgery and even . The patient understood and agreed to proceed. PROCEDURE After written informed consent was obtained, the patient was brought to the EP lab where he was prepped and draped in the usual sterile fashion. Conscious sedation was initiated and maintained throughout the procedure by anesthesiologist. Once sedation verified, the right inguinal area was anesthetized with 2% Xylocaine. Using modified Seldinger technique, the right femoral vein was cannulated on four occasions, four guidewires were advanced. Over the wire, a 3, 5 and a 6-Romanian Hemaquet were advanced. Then under fluoroscopic guidance through the 5 and 6-Romanian Hemaquet, four 5-Romanian Dayo curved quadripolar electrophysiology catheters were advanced and placed on the His, upper right atrium, coronary sinus and right ventricular apex. Basic interval was measured. They were within normal limits. At this point, atrial pacing protocol was performed. Atrial pacing protocol consisted of incremental atrial pacing as well as program stimulation with one drive train cycle length and up to one extra stimuli delivered. No tachyarrhythmia was induced. Then ventricular pacing protocol was performed. There was VA conduction. No tachyarrhythmia was induced. Isuprel infusion was initiated. No ventricular, no supraventricular tachyarrhythmia was induced. At that point, procedure was complete. All catheters were removed. The patient is going to be kept on the table. A single chamber defibrillator will be implanted for sudden primary prevention. No incident report. The patient tolerated procedure. Blood loss minimal. 1. Electrocardiogram: At baseline, the patient was in sinus. Postprocedure electrocardiogram was unchanged. 2. Basic interval: Base cycle length was 920 milliseconds, AH at 100, HV at 40 milliseconds. 3. Left atrial pacing protocol: Wenckebach of the node was around 460. ERP of the node 600-320 milliseconds. No tachyarrhythmia was induced. 4. Ventricular pacing protocol: There was VA conduction at baseline on Isuprel, no tachyarrhythmia was induced. CONCLUSION Negative electrophysiology study for supra and ventricular tachyarrhythmia. COMMENT AND RECOMMENDATIONS Mr. Naidu has coronary artery disease, coronary bypass grafting, ejection 27%, high risk for sudden . A single chamber defibrillator will be implanted for sudden primary prevention. MD JOHN Diehl/BETO /8:41 AM /8:46 AM
[2017-08-10] MEDS: amLODIPine BESYLATE 5 MG TAB PO SCH (09:30)
[2017-08-10] MEDS ORDERED: oxyCODONE/ACETAMINOPHEN 5 MG/325 MG TAB PO PRN ×2 (09:30)
[2017-08-10] MEDS: PARoxetine HCL 20 MG TAB PO SCH (09:30)
[2017-08-10] MEDS: CLOPIDOGREL 75 MG TAB PO SCH (09:30)
[2017-08-10] MEDS: LISINOPRIL 10 MG TAB PO SCH (09:30)
[2017-08-10] MEDS ORDERED: SODIUM CHLORIDE 0.9% FLUSH 10 ML FLUSH IV FLUSH PRN (09:30)
[2017-08-10] MEDS: CARVEDILOL 6.25 MG TAB PO SCH ×2 (09:30→20:23)
[2017-08-10] MEDS: ASPIRIN EC 81 MG TABEC PO SCH (09:30)
[2017-08-10] MEDS: FUROSEMIDE 40 MG TAB PO SCH (09:30)
[2017-08-10] MEDS ORDERED: ALPRAZolam 0.5 MG TAB PO PRN (09:30)
--- NOTE | 2017-08-10 10:18 | CATHPROC ---
[facility] HIS Report Study Information Study Number Admission Scheduled Start Study Start [id number] Aug 10 2017 6:04AM 08/10/2017 Aug 10 2017 8:41AM [place] [facility] Cardiac Pacer/ICD Admit Source Facility Department Other [facility] - Joy Operator Helper Physician and Clinical Staff Initial Gita Gorman Sample Preparation Supervisor Eyad Song,RT(R) Other Anesthesia, FACE AND FILL PACKER Recorder Lisa Lau,KENNY Scrub Luba Saul,RT(R) TECH2 Procedures Performed Procedure Lead Insertion Equipment Time Instrument Repair Supervisor Description Size Mfg Part Number Used/Scraped DERMABOND, ADHESIVE SKIN [id number] 08:43 CORDIS/PACER * Used GLUE MINI *[id number] 08:43 MEDLINE INDUSTRIES SUTURE, STRIP PLUS 1/2" * Used *[id number] 08:43 MEDLINE PACER ELLIS, LIMB * 2530 *[id number] Used [id number] 08:43 MEDLINE PACER PACK, PACER CUSTOM * Used *[id number] 09:00 Needle Sponge Count 18 18 Used 09:00 Needle Sponge Count 2 22 Used 09:00 Needle Sponge Count 3 3 Used SUTURE, 0 ETHIBOND [CT1] (CX21D), 8pk SUTURE, 2-0 VICRYL [CT1] ([id number]) SUTURE, 2-0 VICRYL [CT1] ([id number]) [id number] 08:43 [employer] BLANKET,WARM AIR CCL * Used *[id number] 12:49 [employer] MANNIE MEDICAL DEFIBRILLATOR, ELLIPSE VR [id number] Used LEAD, DURATA ACTIVE FIXATION 09:09 [facility] MANNIE MEDICAL 65CM 7120Q/65CM Used 7120Q/65 [facility] PAD, ELECTROSURGICAL 08:43 * [id number] *[id number] Used SURGICAL GROUNDING ORANGE [id number] 08:43 [employer] CHAYO. / * Used *21527 Equipment Model, Serial, Lot Number and Expiration Data Description Model Number Serial Number Lot Number Expiration D ate DEFIBRILLATOR, ELLIPSE VR [id number] 06-27-2019 LEAD, DURATA ACTIVE FIXATION 7120q-65 [id number] 07-27-2018 7120Q/65 History: Allergies Allergy Reaction codeine "NAUSEA" Wellbutrin ANXIETY bupropion ANXIETY Medication Medication Total Dose (Bolus/Oral) Medication Total Dosage/Unit 2% XYLOCAINE 50 mL Medications (Bolus/Oral) Medication Time Given Dosage/Unit Administered By Reason 2% XYLOCAINE 08/10/2017 9:06:48 AM 50 mL Gita Giles 50 mL 2% XYLOCAINE given in lab by Anesthesia, FACE AND FILL PACKER in Left upper chest via Subcutaneous. Ordered by Gita Giles. Medication (Drip) Medication Time Given Dosage/Unit Concentration/Unit Diluent (ml) Solution ANCEF 08/10/2017 8:41:39 AM 2 g 2 g ANCEF given in lab by Anesthesia, FACE AND FILL PACKER via Peripheral IV. Ordered by Gita Giles. Reason: As pe r physicians verbal order. VANCOMYCIN DRIP 08/10/2017 8:41:54 AM 1 g 1 g VANCOMYCIN DRIP given in lab by Tanisha, FACE AND FILL PACKER via Peripheral IV. Ordered by Gita Giles. Final Case Assessment Cardiovascular HR NIBP Chest Pain 67 102/57 0 Edema Present Skin color Skin None Normal Warm Dry Neurological State Oriented to time-place- Alert Moves all extremities person Respiration - General Respiration Rate SpO2 (%) (B/min) 20 94 Chronological Log Time Study Chronological Log 8:40:54 NOTE: This patient is undergoing an additional procedure while still in the Cardiac Joy Operator Helper . 8:40:57 Initial procedure has been completed. Beginning additional procedure. 8:41:00 Anesthesia remains at bedside. Assuming care of patient. 8:41:21 2% CHLORHEXIDINE GLUCONATE WASH AND NASAL SWIPE DONE PRIOR TO PROCEDURE. 2 g ANCEF given in lab by Anesthesia, FACE AND FILL PACKER via Peripheral IV. Ordered by Gita Giles. Reason: As per physicians 8:41:39 verbal order. 8:41:54 1 g VANCOMYCIN DRIP given in lab by Anesthesia, FACE AND FILL PACKER via Peripheral IV. Ordered by Can Giles. 8:44:00 2% CHLORHEXIDINE GLUCONATE WASH AND NASAL SWIPE DONE PRIOR TO PROCEDURE. 8:44:04 Bovie ground pad applied to: right thigh First Sponge And Instrument Count Done by Eyad Song, RT(R). 8:59:16 Hypo's: 3, Sponges: 18, Bovie/scratch: 2 Sutures: 10, Blades: 1, Instruments: 26, Syveck Patches: 0 9:00:00 Upper Chest Prepped Times Two. Time Out. Correct patient, procedure, procedure equipment, site and side verified with physicia n present. Time 9:06:05 concurred by MD, individual staff and FACE AND FILL PACKER. Time Out #2 - Consents verified, patient in correct position, all results are labled and displa yed, safety precautions 9:06:21 taken, antibiotics administered. Time out concurred by MD, individual staff and FACE AND FILL PACKER in procedu re 9:06:47 Case Start 50 mL 2% XYLOCAINE given in lab by Anesthesia, FACE AND FILL PACKER in Left upper chest via Subcutaneous. Order ed by Chan, 9:06:48 Gita. 9:08:07 Vascular access was obtained in the Subclav. Vein (Lft. 9:08:09 Wire inserted 9:08:17 Surgical Incision Made. 9:08:57 A pocket was created at the L Upper Chest. 9:09:08 A LEAD, DURATA ACTIVE FIXATION 7120Q/65 65CM was inserted and positioned in the RV. 9:10:17 Lead placement verified under fluoroscopy 9:13:04 The RV lead impedance and threshold being tested. 9:14:11 The RV lead was sutured to the fascia. 9:15:14 A implantable was connected and placed in the pocket. EllipseVR [id number], SN [id number], ex: 06/27/19 First Sponge And Instrument Count Done by Eyad Song RT(R). 9:17:24 Hypo's: 3, Sponges: 18, Bovie/scratch: 2 Sutures: 10, Blades: 1, Instruments: ~INSTRU~, Syveck Patches: ~SYVECK PATCH~ 9:21:25 DOCU called. Spoke to Dusty 9:21:36 Bedside Report will be given. 9:21:39 Implant Procedure was performed. 9:21:43 A ICD Implant . (Dual) 9:25:49 Steri-strips and a sterile dressing applied to site. 9:26:03 Implantable Device card placed in patient's chart. 9:38:36 The pocket was closed. Final Sponge And Instrument Count Done by Eyad Song RT(R). 9:40:31 Hypo's: 3, Sponges: 18, Bovie/scratch: 2 Sutures: 10, Blades: 1, Instruments: 26, Syveck Patches: 0 9:51:10 Sheaths removed; pressure applied to venous access site by M.Mrache RN for 20 mins. Hemostas is achieved. 10:08:15 Oozing noted from pacer pocket. Dr. Giles notified. Eyad Song had held pressure on pocket f or 20 minutes. 10:12:16 Orders received to keep pressue dressing on and just observe pocket site. Assessment: Final Case, HR=67 BPM, WVNR=887/57 mmhg, Chest Pain=0, Edema=None, Color=Normal, S kin = Warm, Dry 10:13:26 Neurological: State=Alert, Ox3, IRVIN Respiration: Resp=20 B/min, SpO2=94 % 10:14:06 No case complications noted. 10:14:09 Cine recording checked. 10:14:15 Implantable Device card placed in patient's chart. 10:14:17 Bedside Report will be given.DOC notified 10:14:33 Defibrillator and ground pads removed. Skin intact. 10:15:31 Case End 10:25:00 Patient moved to stretcher and transported to [facility] in stable condition. End Study - Contrast Media Used In Study Contrast Total Opened (mL) Total Used (mL) Total Wasted (mL) Unspecified 0 0 0 End Study - Radiation Exposure Fluoro Time (minutes) 1.7 End Study - Sheaths Sheaths Pulled By Sheath Hold Time (min) Lisa Lau 20 End Study - Patient Disposition Complications Transferred To Interventional Outcome No Telemetry Bed successful
[2017-08-10] MEDS ORDERED: PILL SPLITTER OTHER PRN (11:15)
--- NOTE | 2017-08-10 11:20 | RADRPT ---
EXAM DATE/TIME: 08/10/2017 10:43 [place] COMPARISON: CHEST SINGLE AP, February 18, 2017, 18:04. INDICATIONS : Post ICD MEDICAL HISTORY : Hypertension. Diabetes mellitus type II. SURGICAL HISTORY : CABG. Amputation left toes ENCOUNTER: Initial ACUITY: 1 day PAIN SCORE: 0/10 LOCATION: chest FINDINGS: Left-sided ICD placement is noted. Leads appear to be in appropriate position. Postsurgical changes are noted from prior CABG. The lungs are hypoaerated due to expiratory technique. There is no evidence of pneumothorax. CONCLUSION: 1. Satisfactory appearance of the chest following ICD placement. 2. No evidence of pneumothorax. 3. Status post CABG. Reji Nathan MD on August 10, 2017 at 11:16 Board Certified Radiologist. This report was verified electronically.
[2017-08-10] MEDS ORDERED: INSULIN DEGLUDEC 1 UNIT SQ SCH (13:00)
[2017-08-10] MEDS ORDERED: [UNRECOGNIZED DRUG - OTHER] SQ SCH (13:00)
[2017-08-10] MEDS: ceFAZolin 2 GM PREMIX 50 ML IV SCH ×2 (15:00→23:33)
[2017-08-10] MEDS ORDERED: GLUCAGON 1 MG/ML VIAL OTHER PRN (15:00)
[2017-08-10] MEDS ORDERED: DEXTROSE 50% IN WATER 50 ML VIAL(D50) IV PUSH PRN (15:00)
[2017-08-10] MEDS: MEDIUM DOSE INSULIN NOVOLOG SUPPLEMENTAL SCALE SQ SCH ×2 (16:09→20:24)
[2017-08-10] MEDS: GEMFIBROZIL 600 MG TAB PO SCH (16:51)
--- NOTE | 2017-08-10 16:57 | EKG ---
Date Performed: 08/10/2017 Time Performed: 07:17:08 PTAGE: 71 years EKG: Sinus rhythm . Left axis deviation IV conduction defect Inferior infarct - age undetermined QRS changes V3/V4 may be due to LVH but cannot rule out anterior infarct Abnormal ECG PREVIOUS TRACING : 09/27/2016 08.40 Since the prior tracing, when allowing for the artifact on the previous tracing, there does not appear to be any significant serial change. The present tracing remains consistent with probable left ventricular hypertrophy. DOCTOR: Charleen Parisi Interpretating Date/Time 08/10/2017 16:55:55
[2017-08-10] MEDS: metFORMIN HCL 500 MG TAB PO SCH (17:24)
[2017-08-10] MEDS: ONDANSETRON HCL 4 MG/2 ML VIAL IV PUSH PRN (17:24)
[2017-08-10] MEDS: SODIUM CHLORIDE 0.9% FLUSH 10 ML FLUSH IV FLUSH SCH (20:24)
[2017-08-10] MEDS ORDERED: PRAVASTATIN SOD 80 MG TAB PO SCH (21:00)
[2017-08-10] MEDS ORDERED: TEMAZEPAM 15 MG CAP PO PRN (21:00)
[2017-08-11] VITALS (14 sets, daily range): BP systolic 134–146; BP diastolic 59–66; PULSE 79–97; RESP 17; TEMP 98–98.6; O2SAT 96–98
[2017-08-11] MEDS: GEMFIBROZIL 600 MG TAB PO SCH (05:55)
[2017-08-11] MEDS: NS 1000 ML IV SCH (05:56)
[2017-08-11] MEDS: ceFAZolin 2 GM PREMIX 50 ML IV SCH (05:56)
[2017-08-11] MEDS: ONDANSETRON HCL 4 MG/2 ML VIAL IV PUSH PRN (06:36)
[2017-08-11] MEDS: MEDIUM DOSE INSULIN NOVOLOG SUPPLEMENTAL SCALE SQ SCH (08:10)
[2017-08-11] MEDS: SODIUM CHLORIDE 0.9% FLUSH 10 ML FLUSH IV FLUSH SCH (08:10)
[2017-08-11] MEDS: ASPIRIN EC 81 MG TABEC PO SCH (08:10)
[2017-08-11] MEDS: CARVEDILOL 6.25 MG TAB PO SCH (08:10)
[2017-08-11] MEDS: metFORMIN HCL 500 MG TAB PO SCH (08:11)
[2017-08-11] MEDS: amLODIPine BESYLATE 5 MG TAB PO SCH (08:12)
[2017-08-11] MEDS: FUROSEMIDE 40 MG TAB PO SCH (08:12)
[2017-08-11] MEDS: CLOPIDOGREL 75 MG TAB PO SCH (08:13)
[2017-08-11] MEDS: PARoxetine HCL 20 MG TAB PO SCH (08:13)
[2017-08-11] MEDS: LISINOPRIL 10 MG TAB PO SCH (08:13)
[2017-08-11] MEDS ORDERED: POTASSIUM CHLORIDE 20 MEQ CONTROLLED RELEASE TAB PO SCH (09:00)
--- NOTE | 2017-08-11 11:32 | HHI.PR ---
Subjective Remarks Feeling better Objective Vital Signs Date Time Temp Pulse Resp B/P (MAP) Pulse Ox O2 Delivery O2 Flow Rate FiO2 08/11/17 11:00 98.6 85 17 143/63 (89) 97 08/11/17 11:00 79 08/11/17 10:00 80 08/11/17 09:00 97 08/11/17 08:00 82 08/11/17 07:15 98.4 85 17 146/66 (92) 96 08/11/17 07:15 82 08/11/17 06:26 86 08/11/17 05:19 84 08/11/17 04:07 86 08/11/17 03:25 89 08/11/17 03:00 98.0 88 134/59 (84) 98 08/11/17 02:09 85 08/11/17 01:02 87 08/11/17 00:00 80 08/10/17 23:00 98.0 81 114/56 (75) 94 08/10/17 23:00 83 08/10/17 22:00 84 08/10/17 21:00 86 08/10/17 20:15 97 21 08/10/17 20:00 86 08/10/17 19:15 98.2 85 105/59 (74) 93 08/10/17 19:00 82 08/10/17 18:40 17 08/10/17 18:00 85 08/10/17 17:50 77 08/10/17 17:30 97.9 80 19 150/66 (94) 98 I/O 08/10/17 08/10/17 08/10/17 08/11/17 08/11/17 08/11/17 07:00 15:00 23:00 07:00 15:00 23:00 Intake Total 240 ml 580 ml Output Total 1050 ml Balance 240 ml -470 ml Intake Oral 240 ml 480 ml IV Total 100 ml Output Urine Total 1050 ml Result Diagram: 08/10/1745 08/10/1745 Imaging Alert, fully oriented Clean surgical wound Lungs: ventilated Heart: S1, S2 regular Abdomen: soft, no mass Ext: no edema Last Impressions Chest X-Ray 08/10/17 0000 Signed Impressions: Service Date/Time: July 10:43 - CONCLUSION: 1. Satisfactory appearance of the chest following ICD placement. 2. No evidence of pneumothorax. 3. Status post CABG. Reji Nathan MD Assessment and Plan Problem List: (1) CHF (congestive heart failure) ICD Codes: I50.9 - Heart failure, unspecified Plan: On optimal medical management (2) Cardiac defibrillator in situ ICD Codes: Z95.810 - Presence of automatic (implantable) cardiac defibrillator Plan: SP ICD. Doing well Will be DH follow up as previously scheduled Device well functioning Gita Giles MD Aug 11, 2017 11:32
[2017-08-11] MEDS ORDERED: CEPH-460 PO (11:34)
--- NOTE | 2017-08-12 09:36 | EKG ---
Date Performed: 08/11/2017 Time Performed: 05:14:48 PTAGE: 71 years EKG: Sinus rhythm Left axis deviation Extensive infarct - age undetermined Abnormal ECG PREVIOUS TRACING : 08/10/2017 07.17 DOCTOR: Gita Giles Interpretating Date/Time 08/12/2017 09:35:46
== END 2017-08-11 12:26 | disposition home or self-care (01) ==
LOC: HCAT 06:04 → HDIC 06:05 → HCPC 17:25 → HCAT 08-11 12:26
PROVIDERS: ATTEND Internal Medicine Interventional Cardiology
DX: I50.9 Heart failure, unspecified (principal); I42.9 Cardiomyopathy, unspecified; I25.10 Atherosclerotic heart disease of native coronary artery without angina pectoris; Z95.1 Presence of aortocoronary bypass graft
CPT/HCPCS: 00534; 33249; 71010; 80048; 82948; 85025; 85610; 85730; 86850; 86900; 86901; 93005; 93620; 93623; C1722; C1730; C1895; J0690; J1815; J2405; J3370; J7030; J7040